=== PATIENT | female | born 1940 | race Caucasian/White ===

== ENCOUNTER 2017-12-20 12:11 | Observation (INO) ==
[2017-12-20] MEDS ORDERED: Ondansetron 4 MG/2 ML VIAL IVP ONE (12:23)
[2017-12-20] MEDS ORDERED: *HR* FentaNYL (PF) 100 MCG/2 ML VIAL IVP ONE ×2 (12:24→14:23)
[2017-12-20] MEDS ORDERED: Orphenadrine 60 MG/2 ML VIAL IVP ONE (12:25)
--- NOTE | 2017-12-20 12:28 | Emergency Department Note ---
Disposition Clinical Impression: Lumbar radiculopathy, Lumbar back pain, Intractable low back pain UTI (urinary tract infection) Qualifiers: Urinary tract infection type: acute cystitis Hematuria presence: without hematuria Qualified Code(s): N30.00 - Acute cystitis without hematuria Disposition: Admitted As Inpatient Condition: Good Reasons to Return/Additional Instructions: Return with worsening symptoms or any other complaints. Please follow-up as scheduled for her procedure. Referrals: Tamela Smith CNP [Primary Care Provider] - Forms: ED Satisfaction Letter Back Pain HPI - General Chief Complaint: ED Back Pain/Injury Time Seen by Provider: 12/20/17 12:16 Source: patient, EMS Nursing Notes Reviewed: Yes Vital Signs Reviewed: Yes - History of Present Illness HPI Narrative: 77-year-old female presents to the emergency part chief complaint lower back pain. Patient states is the worst lower back pain she has had some time. She scheduled for lumbar surgery of some kind, but in prepping her for that she was found to require triple bypass. The surgery scheduled for Friday. She says the pain is just unbearable. She takes oral opioids at home and she says they are not helping. She also takes a muscle relaxant of unknown name. She denies fevers chills loss of bowel or bladder function or other complaints at this time. Pt Subjective Complaint: back pain Onset (ago): month(s) Duration: constant Similar Symptoms Previously: Yes Location: lumbar spine Pain Severity: severe Pain Scale: 8 Quality: sharp Radiation: left leg Improves with: none Worsens with: none Associated symptoms: Reports: denies other symptoms Treatments prior to arrival: prescription analgesics - Related Data Home Medications Medication Instructions Recorded Confirmed Aspirin 81 mg PO DAILY 05/22/15 12/16/17 Carvedilol [Coreg] 6.25 mg PO BIDWM 05/22/15 12/16/17 Cholecalciferol (Vitamin D3) 2,000 unit PO DAILY 05/22/15 12/16/17 [Vitamin D3] Clopidogrel Bisulfate [Plavix] 75 mg PO DAILY 05/22/15 12/16/17 Insulin ASPART [NovoLOG] 5 - 24 unit SQ TIDWM PRN 05/22/15 12/16/17 Levothyroxine Sodium [Synthroid] 100 mcg PO DAILY 05/22/15 12/16/17 Simvastatin [Zocor] 20 mg PO HS 05/22/15 12/16/17 Doxepin HCl 150 mg PO HS 01/17/17 12/16/17 Benzonatate [Tessalon] 100 mg PO TID PRN 12/16/17 12/16/17 Gabapentin [Neurontin] 100 mg PO TID PRN 12/16/17 12/16/17 Hydrocodone/Acetaminophen 1 each PO TID PRN 12/16/17 12/16/17 [Hydrocodone-Acetamin 7.5-300] LORazepam [Ativan] 0.5 - 1 mg PO TID PRN 12/16/17 12/16/17 Oxycodone HCl [Oxaydo] 5 mg PO BID PRN 12/16/17 12/16/17 Sennosides [Senokot] 8.6 mg PO DAILY 12/16/17 12/16/17 Tizanidine HCl [Zanaflex] 2 mg PO TID 12/16/17 12/16/17 Venlafaxine [Effexor] 37.5 mg PO DAILY 12/16/17 12/16/17 Previous Rx's Medication Instructions Recorded Amlodipine [Norvasc] 2.5 mg PO DAILY #30 tablet 05/25/15 Allergies Allergy/AdvReac Type Severity Reaction Status Date / Time shellfish derived AdvReac Vomiting Verified 12/16/17 06:56 All systems ED: reviewed and negative except as stated. Constitutional: Reports: as per HPI Eyes: Reports: as per HPI ENT ED: Reports: as per HPI Cardiovascular: Reports: as per HPI Respiratory: Reports: as per HPI Gastrointestinal: Reports: as per HPI Genitourinary: Reports: as per HPI Musculoskeletal: Reports: as per HPI Neurological: Reports: as per HPI Psychiatric: Reports: as per HPI Past Medical History - Past Medical History Attestation: Yes The following information was validated with the patient. Medical history: Reports: cancer, coronary artery disease, diabetes, hyperlipidemia, hypertension, thyroid disease, other Surgical history: Reports: angioplasty/stent, hysterectomy, other (Left subclavian port placement) Psychiatric history: Reports: anxiety, depression KEY RINGER history: Reports: no KEY RINGER history - Social History Smoking Status: Former smoker Smokeless Tobacco Status: No Alcohol use: Reports: none Drug use: Reports: none Physical Exam - General Limitations: no limitations General appearance: alert, in no apparent distress - Head Head exam: atraumatic - Neck Neck exam: Present: normal inspection - Chest Chest inspection: Present: normal inspection - Respiratory Respiratory exam: Present: normal lung sounds bilaterally - Cardiovascular Cardiovascular exam: Present: regular rate, normal rhythm - Abdominal Exam Abdominal exam: Present: soft, Non-Tender - Extremities Exam Extremities exam: Present: normal inspection - Back Exam Back exam: Present: normal inspection, tenderness (Patient has exquisite tenderness with palpation of the entire lumbar area. It is difficult to ascertain whether maybe specific problems because of her level of discomfort.) - Psychiatric Psychiatric exam: Present: normal affect, anxious - Skin Skin exam: Present: warm, dry, intact Course Vital Signs Temperature 98.7 F 12/20/17 12:16 Pulse Rate 79 12/20/17 12:16 Respiratory Rate 18 12/20/17 12:16 Blood Pressure 154/86 12/20/17 12:16 O2 Sat by Pulse Oximetry 94 12/20/17 12:16 Temperature 98.7 F 12/20/17 12:16 Pulse Rate 79 12/20/17 12:16 Respiratory Rate 18 12/20/17 12:16 Blood Pressure 154/86 12/20/17 12:16 O2 Sat by Pulse Oximetry 94 12/20/17 12:16 Oxygen Delivery Oxygen Delivery Room Air Back Pain/Injury - MDM Narrative Medical decision making narrative: An attempt to not give the patient something that would preclude her from having her bypass surgery we opted for fentanyl a muscle relaxant and some Zofran. Patient was requesting possible admission until her surgery time, I explained that this would be dependent on whether or not her pain was able to be controlled. Otherwise she had no other complaints. Hemodynamically she was stable. Patient initially stated that the pain medicine was helping, but then said it really was not touching her pain. Additionally urinalysis was positive. At this point him and he tried to admit the patient for intractable back pain and UTI. Hopefully couple days of IV antibiotics and get her ready for her cardiac surgery on Friday. We discussed the case with the hospitalist service at 3 PM agreed to accept the patient for admission. - Lab Data Result diagrams: 12/20/17 14:39 Lab Results 12/20/17 12/20/17 Range/Units 12:38 14:39 WBC 4.4 (4.3-11.1) K/mcL RBC 3.91 (3.82-4.97) M/mcL Hgb 11.9 (11.5-15.4) g/dL Hct 36.6 (35.3-44.9) % MCV 93.6 (83.0-100.0) fL MCH 30.4 (28.0-33.3) pg MCHC 32.5 (31.6-35.5) g/dL RDW 13.6 (11.5-14.5) % Plt Count 148 (140-400) K/mcL MPV 9.0 L (9.4-12.4) fL Immature Gran % 0.5 (0-4) % Seg Neutrophils % 58.1 % Lymphocytes % 24.3 % Monocytes % 10.6 % Eosinophils % 6.0 % Basophils % 0.5 % Neutrophils # 2.5 (1.6-8.9) K/mcL Lymphocytes # 1.1 (0.6-4.6) K/mcL Monocytes # 0.5 (0.0-1.3) K/mcL Eosinophils # 0.3 (0.0-0.6) K/mcL Basophils # 0.0 (0.0-0.2) K/mcL Urine Color Yellow (Yellow) Urine Clarity Cloudy A (Clear) Urine pH 7.0 (5.0-8.0) pH Units Ur Specific [place] 1.011 (1.010-1.025) Urine Protein Negative (Neg-Trace) mg/dL Urine Glucose (UA) Normal (Normal) mg/dL Urine Ketones Negative (Negative) mg/dL Urine Blood Negative (Negative) Urine Nitrite Negative (Negative) Urine Bilirubin Negative (Negative) Urine Urobilinogen Normal (Normal) mg/dL Ur Leukocyte Esterase Large H (Negative) Urine Microscopic RBC 3-5 H (0-3) per hpf Urine Microscopic WBC 30-50 H (0-3) per hpf Ur Squamous Epith Cells Moderate H (None-Few) per lpf Urine Bacteria None Seen (None-Few) per hpf Hyaline Casts None Seen (None-Few) per lpf Ur Culture Indicated? YES A (NO) - Radiology Data Radiology results reviewed: Yes I reviewed the patient's radiology results.
[2017-12-20 14:13] LABS: Bilirubin,Urine Negative (Negative); Blood,Urine Negative (Negative); Clarity,Urine Cloudy (Clear); Color,Urine Yellow (Yellow); Glucose,Urine (UA) Normal (Normal); Ketones,Urine Negative (Negative); Leukocyte Esterase,Urine Large (Negative); Nitrite,Urine Negative (Negative); Protein,Urine Negative (Neg-Trace); Specific Gravity,Urine 1.011 (1.010-1.025); Urobilinogen,Urine Normal (Normal)
[2017-12-20 14:17] LABS: Bacteria,Urine None Seen per hpf (None-Few); Hyaline Casts,Urine None Seen per lpf (None-Few); Squamous Epithelial Cell,Urine Moderate per lpf (None-Few); WBC,Urine 30-50 per hpf (0-3)
[2017-12-20] MEDS ORDERED: cefTRIAXone 1,000 MG in Water for inj. (sterile) 20 ML 10 ML IVP ONE (14:46)
[2017-12-20 14:49] LABS: Hematocrit 36.6 % (35.3-44.9); Hemoglobin 11.9 g/dL (11.5-15.4); Immature Granulocytes % 0.5 % (0-4); Lymphocytes % 24.3 %; Mean Corpuscular HGB Conc 32.5 g/dL (31.6-35.5); Mean Corpuscular Hemoglobin 30.4 pg (28.0-33.3); Mean Corpuscular Volume 93.6 fL (83.0-100.0); Monocytes % 10.6 %; Platelet Count 148 K/mcL (140-400); Red Blood Count 3.91 M/mcL (3.82-4.97); Red Cell Distribution Width 13.6 % (11.5-14.5); Segmented Neutrophils % 58.1 %
[2017-12-20 14:50] LABS: Basophils % 0.5 %; Eosinophils # 0.3 K/mcL (0.0-0.6); Lymphocytes # 1.1 K/mcL (0.6-4.6); Monocytes # 0.5 K/mcL (0.0-1.3); Neutrophils # 2.5 K/mcL (1.6-8.9)
[2017-12-20] MEDS ORDERED: cefTRIAXone 1,000 MG in Water for inj. (sterile) 20 ML 10 ML IVP SCH (15:00)
[2017-12-20 15:12] LABS: Alanine Aminotransferase 10 Units/L (7-52); Albumin 3.8 g/dL (3.5-5.7); Albumin/Globulin Ratio 1.7 (1.1-2.2); Alkaline Phosphatase 68 Units/L (34-104); Aspartate Amino Transferase 14 Units/L (13-39); BUN/Creatinine Ratio 9 (6-26); Bilirubin,Direct 0.1 mg/dL (0.0-0.2); Bilirubin,Indirect 0.3 mg/dL (0.0-1.2); Bilirubin,Total 0.4 mg/dL (0.3-1.0); Blood Urea Nitrogen 7 mg/dL (8-23); Calcium 8.9 mg/dL (8.6-10.3); Carbon Dioxide 29 mEq/L (23-29); Chloride 102 mEq/L (98-107); Globulin 2.2 g/dL (2.4-3.5); Glucose 95 mg/dL (70-105); Osmolality,Calculated 282 (280-300); Potassium 3.6 mEq/L (3.5-5.1); Sodium 137 mEq/L (136-145); eGFR For African Americans > 60 (> 60); eGFR For Non-African Americans > 60 (> 60)
[2017-12-20] MEDS ORDERED: Naloxone 0.4 MG/ML INJ IVP PRN (17:40)
[2017-12-20] MEDS ORDERED: Acetaminophen 325 MG TABLET PO PRN (17:40)
[2017-12-20] MEDS ORDERED: OXYCODONE Oral CONC 10 MG/0.5 ML ORAL.SYG SL PRN (18:06)
[2017-12-20] MEDS: *HR* HYDROcodone/Acet 7.5/325 mg TABLET PO PRN (18:15)
[2017-12-20] MEDS: *HR* OxyCODONE/APAP 10/325 TABLET PO PRN ×2 (18:15→22:44)
[2017-12-20] MEDS ORDERED: Sennosides 8.6 MG TABLET PO PRN (18:20)
[2017-12-20] MEDS ORDERED: *HR* Dextrose 50 % in Water (Syg) 50 ML SYRINGE IVP PRN (18:25)
[2017-12-20] MEDS ORDERED: D5% in Water 1,000 ML IVC PRN (18:25)
[2017-12-20] MEDS ORDERED: Dextrose Gel 15 GM/37.5 ML TUBE PO PRN ×2 (18:25)
--- NOTE | 2017-12-20 18:28 | Internal Med History&Physical ---
<KeishaKaleb - Last Filed: 12/20/17 19:26> Date of Encounter: 12/20/17 Time of Encounter: 17:15 Internal Medicine - H&P: HPI Chief complaint: Chronic low back pain/UTI Admitted From: Emergency Dept Plans for Post Hospital Care: Home History of present illness: Ms. Chavez is a 77 year old female w/PMH of non-Hodgkin's lymphoma in 2006 and 2008, CAD, diabetes controlled with insulin, HLD, HTN, and thyroid disease presents from the ED with chief complaint of chronic low back pain. Pt. reports she was supposed to have back surgery this past Friday but did not due to the discovery of need for triple bypass surgery which is scheduled for Friday, . Patient states oral pain medication she takes at home are no longer helping control her pain or muscle spasms. Patient denies recent illness, fever , chills, nausea, vomiting, headache, changes in vision, chest pain, palpitations, abdominal pain, numbness, tingling, dizziness, lightheadedness, pre-syncope, or syncope. Past Med Surg Social Fam HX - Past Medical History Source: patient, old records reviewed, obtained from family Medical history: cancer (Non-Hodgkins lymphoma in 2006 and 2008), coronary artery disease, diabetes (Insulin-controlled), hyperlipidemia, hypertension, thyroid disease, other Psychiatric history: anxiety, depression - Past Surgical History Surgical History: angioplasty/stent (x1), hysterectomy (Total), other - Social History Smoking Status: Never smoker Smokeless Tobacco Status: No Alcohol use: none Drug use: none Current living situation: Home, With Family Activity Level: Independent ambulation Recent Out of Country Travel Within the Last 8 Weeks: No Exposure or Possible Exposure to Illness During Travel: No - Family History Sister Race: Family Member Ethnicity: Non- Living Status: Still Living Hx Family GI Disorders: Yes (Crohn's disease) Hx Family Musculoskeletal Disorders: Yes (RA, Osteoporosis) Mother Race: Family Member Ethnicity: Non- Living Status: Age at : 60 Cause of : CVA Hx Family Cardiac Disorders: Yes (CVA) Hx Family Neurologic Disorders: Yes (CVA) Father Race: Family Member Ethnicity: Non- Living Status: Age at : 65 Cause of : CVA Hx Family Cardiac Disorders: Yes (CVA) Hx Family Neurologic Disorders: Yes (CVA) Brother Race: Family Member Ethnicity: Non- Living Status: Still Living Hx Family GI Disorders: Yes (GI problems) Internal Medicine - H&P: Meds Amlodipine Besylate [Amlodipine Besylate] 2.5 mg PO DAILY 12/20/17 [History] Aspirin [Adult Aspirin Regimen] 81 mg PO DAILY 12/20/17 [History] Carvedilol [Coreg] 6.25 mg PO BID 12/20/17 [History] Clopidogrel [Plavix] 75 mg PO DAILY 12/20/17 [History] Doxepin HCl 150 mg PO HS 12/20/17 [History] Gabapentin [Neurontin] 100 - 200 mg PO BID 12/20/17 [History] HYDROcodone/Acet 7.5/325 mg [[place] 7.5-325 mg] 1 tab PO TID PRN 12/20/17 [ History] Insulin ASPART [Novolog Flexpen] 5 - 24 unit SQ TIDWM 12/20/17 [History] Insulin Glargine,Hum.rec.anlog [Basaglar Kwikpen U-100] 15 unit SQ HS 12/20/17 [ History] LORazepam [Ativan] 0.5 - 1 mg PO TID PRN 12/20/17 [History] Levothyroxine Sodium 100 mcg PO DAILY 12/20/17 [History] Multivitamin [One Daily Essential] 1 tab PO DAILY 12/20/17 [History] Sennosides [Senokot] 8.6 mg PO DAILY PRN 12/20/17 [History] Simvastatin [Zocor] 20 mg PO HS 12/20/17 [History] Tizanidine HCl [Zanaflex] 2 mg PO TID 12/20/17 [History] Venlafaxine XR (24 HR) [Effexor Xr] 37.5 mg PO DAILY 12/20/17 [History] 3 Allergy/AdvReac Type Severity Reaction Status Date / Time shellfish derived AdvReac Vomiting Verified 12/20/17 15:32 All Systems PM: A 10-system review of systems was performed and is negative for pertinent findings except as documented above in the HPI. - Constitutional Constitutional: as per HPI, no chills, no fever(s), no night sweats - EENT Eyes: no change in vision, no discharge, no pain, no photophobia Ears: no ear discharge, no ear pain, no tinnitus Nose, mouth and throat: no dysphagia, no nasal discharge, no neck pain, no sore throat - Breasts Breasts: as per HPI - Cardiovascular Cardiovascular ROS IM: no chest pain, no diaphoresis, no dyspnea, no lightheadedness, no palpitations, no syncope - Respiratory Respiratory: no cough, no dyspnea, no wheezing, no excessive phlegm production - Gastrointestinal Gastrointestinal: no abdominal pain, no diarrhea, no hematemesis, no hematochezia, no melena, no nausea, no vomiting - Genitourinary Genitourinary: no change in urinary stream, no dysuria, no flank pain, no hematuria Menstruation: as per HPI, post hysterectomy - Musculoskeletal Musculoskeletal ROS IM: as per HPI, back pain, no numbness, no tingling - Integumentary Integumentary IM: no rash, no unusual bruising - Neurological Neurological ROS: no confusion, no convulsions, no focal weakness, no numbness, no tingling, no tremor(s) - Psychiatric Psychiatric: as per HPI, anxiety, depression - Endocrine Endocrine IM: as per HPI - Hematologic/Lymphatic Hematologic/Lymphatic: no easy bruising - Allergic/Immunologic Allergic/Immunologic: as per HPI - Constitutional Vitals: Temp Pulse Resp BP Pulse Ox 98.4 F 77 16 169/92 94 12/20/17 16:51 12/20/17 16:51 12/20/17 16:51 12/20/17 16:51 12/20/17 16:51 General appearance: Present: cooperative, mild distress (Back pain), A&O X 3, pleasant, obese, answers questions appropriately - Head Head exam: Present: atraumatic, normocephalic - Eye Eye exam: Present: PERRL, conjuntiva pink, sclera anicteric Pupils: Present: PERRL - ENT ENT exam: Present: normal exam - Neck Neck exam general surgery: Present: supple, trachea midline. Absent: lymphadenopathy - Respiratory Respiratory exam: Present: CTAB. Absent: accessory muscle use, rales, rhonchi, wheezes - Cardiovascular Cardiovascular exam: Present: RRR, +S1, +S2. Absent: diastolic murmur, gallop, rubs, systolic murmur - GI/Abdominal GI/Abdominal exam: Present: normal bowel sounds, soft, no peritoneal signs. Absent: distended, tenderness - Rectal Rectal exam: Present: deferred - Additional comments: exam deferred. - Extremities Exam Extremities exam: Present: warm, radial pulses palpable and symmetrical. Absent : calf tenderness, cyanotic, pedal edema - Back Exam Back exam: Present: normal inspection - Neurological Exam Neurological exam: Present: CN II-XII intact, oriented X3, no focal deficits. Absent: pronater drift, facial droop, speech deficit - Psychiatric Psychiatric exam: Present: normal affect, normal mood - Skin Skin exam: Present: dry, intact Internal Med - H&P Results - Labs CBC & Chem 7: 12/20/17 14:39 12/20/17 14:39 - Diagnostic Studies Other Images Additional comments: Impressions Lumbar Spine X-Ray 12/20/17 12:23 IMPRESSION: Grade 1 anterolisthesis of L4 on L5 and L5 on S1. Mild multilevel degenerative changes without acute osseous abnormality. Osteopenia. D/ / 12/20/2017 13:31:54 Aydee Combs MD / [email or web address] Interpreting Provider: Aydee Combs MD - Assessment and plan (1) Intractable low back pain Current Visit: Yes Status: Acute Assessment and plan: Acute on chronic low back pain. 3V lumbar spine XR today shows grade 1 anterolisthesis of L4 on L5 and L5 on S1. Mild multilevel degenerative changes without acute osseous abnormality. Osteopenia. Patient reports she was due to have back surgery this past Friday but was unable to do so due to discovered need for triple bypass surgery. Plan is to continue with back surgery post- bypass surgery. Will manage pts. chronic back pain w/stair-step pain medications and adjust medications/dosing as needed. Will add Flexeril for reported muscle spasms. Pts. pain and f/u labs to be monitored closely. Pt. discussed w/Dr. Sharpe who agrees w/plan of care. Pt. is moderate risk for further morbidity and falls risk d/t current acute on chronic back pain and current UTI infection, hx, and risk factors (including current heart blockages requiring bypass surgery). Observation. (2) UTI (urinary tract infection) Current Visit: Yes Status: Acute Assessment and plan: Acute UTI from UA today. Pt. denies urinary sx but reports hx off UTIs in past. IVPB ceftriaxone 1000 mg daily for infection coverage. Monitor I&O. Patient currently afebrile and asymptomatic with vital signs WNL. Will monitor patient and f/u labs for signs of increasing infection and/or sepsis criteria. Will adjust abx coverage based on UA culture results if warranted. Qualifiers: Urinary tract infection type: acute cystitis Hematuria presence: without hematuria Qualified Code(s): N30.00 - Acute cystitis without hematuria (3) Diabetes Current Visit: Yes Status: Chronic Assessment and plan: Hx of chronic DM controlled w/insulin. Will administer low-dose correction insulin sliding scale and hypoglycemic protocol. A1c in a.m. labs. BG checks ACHS. Qualifiers: Diabetes mellitus type: type 2 Diabetes mellitus ocean transportation intermediary insulin use: unspecified correction insulin use status Diabetes mellitus complication status : with unspecified complications Qualified Code(s): E11.8 - Type 2 diabetes mellitus with unspecified complications (4) HLD (hyperlipidemia) Current Visit: Yes Status: Chronic Assessment and plan: Hx of chronic HLD. Lipid panel in a.m. labs. Continue pts. Zocor. Qualifiers: Hyperlipidemia type: pure hypercholesterolemia Qualified Code(s): E78.00 - Pure hypercholesterolemia, unspecified; E78.0 - Pure hypercholesterolemia (5) HTN (hypertension) Current Visit: Yes Status: Chronic Assessment and plan: Hx of chronic HTN. Monitor pt. and VS. Continue pts. amlodipine and Coreg. Qualifiers: Hypertension type: essential hypertension Qualified Code(s): I10 - Essential (primary) hypertension (6) CAD (coronary artery disease) Current Visit: Yes Status: Chronic Assessment and plan: Hx of CAD. Pt. reports impending surgery on 12/22/17 for triple bypass. Pt. had recent heart cath on 12/16/[address] [facility]. Continuous cardiac telemetry. Continue pts. aspirin, Zocor, amlodipine, and Coreg. Qualifiers: Coronary Disease-Associated Artery/Lesion type: [place] artery [place] vs. transplanted heart: [place] heart Associated angina: with other forms of angina Qualified Code(s): I25.118 - Atherosclerotic heart disease of [place] coronary artery with other forms of angina pectoris (7) Anxiety and depression Current Visit: Yes Status: Chronic Assessment and plan: Hx of anxiety and depression. Continue patient's Effexor and doxepin. (8) Hx of non-Hodgkin's lymphoma Current Visit: No Status: Resolved Assessment and plan: Hx of non-Hodgkins lymphoma in 2006 and 2008. Resolved. (9) DVT prophylaxis Current Visit: Yes Status: Acute Assessment and plan: Bilateral SCDs on LEs for DVT prophylaxis d/t upcoming surgery on 12/22/17. - Time Spent With Patient Total time spent is greater than 50% in coordination of care (as documented) at patient's floor/unit and/or counseling patient: Greater than 35 minutes <Hai Sharpe P - Last Filed: 12/21/17 10:57> Date of Encounter: 12/21/17 Internal Medicine - H&P: HPI History of present illness: Ms. Chavez is a 77 year old female All Systems PM: A 10-system review of systems was performed and is negative for pertinent findings except as documented above in the HPI. - Constitutional Vitals: Temp Pulse Resp BP Pulse Ox 98.2 F 73 16 146/74 96 12/21/17 06:52 12/21/17 06:52 12/21/17 06:52 12/21/17 06:52 12/21/17 06:52 Internal Med - H&P Results - Labs CBC & Chem 7: 12/21/17 02:46 12/21/17 02:46 Labs: Short CBC 12/21/17 Range/Units 02:46 WBC 4.6 (4.3-11.1) K/mcL Hgb 11.5 (11.5-15.4) g/dL Hct 34.2 L (35.3-44.9) % Plt Count 150 (140-400) K/mcL Neutrophils # 2.5 (1.6-8.9) K/mcL BMP 12/21/17 02:46 Sodium 136 Potassium 4.0 Chloride 103 Carbon Dioxide 27 BUN 8 Creatinine 0.70 Glucose 173 H Calcium 8.7 Liver Function 12/21/17 Range/Units 02:46 Total Bilirubin 0.4 (0.3-1.0) mg/dL AST 15 (13-39) Units/L ALT 10 (7-52) Units/L Alkaline Phosphatase 61 (34-104) Units/L Albumin 3.5 (3.5-5.7) g/dL - Attending Attestation I examined this patient and my medical decision-making was reviewed with the Resident Physician/[employer]SHAL. I agree with the documented findings, disposition and treatment plan as described except to the extent set forth below. seen and examined agree with plan - Assessment and plan (1) UTI (urinary tract infection) Current Visit: Yes Status: Acute Qualifiers: Urinary tract infection type: acute cystitis Hematuria presence: without hematuria Qualified Code(s): N30.00 - Acute cystitis without hematuria (2) CAD (coronary artery disease) Current Visit: Yes Status: Chronic Qualifiers: Coronary Disease-Associated Artery/Lesion type: [place] artery [place] vs. transplanted heart: [place] heart Associated angina: with other forms of angina Qualified Code(s): I25.118 - Atherosclerotic heart disease of [place] coronary artery with other forms of angina pectoris (3) Intractable low back pain Current Visit: Yes Status: Acute (4) Hx of non-Hodgkin's lymphoma Current Visit: No Status: Resolved (5) Diabetes Current Visit: Yes Status: Chronic Qualifiers: Diabetes mellitus type: type 2 Diabetes mellitus ocean transportation intermediary insulin use: unspecified ocean transportation intermediary insulin use status Diabetes mellitus complication status : with unspecified complications Qualified Code(s): E11.8 - Type 2 diabetes mellitus with unspecified complications (6) HLD (hyperlipidemia) Current Visit: Yes Status: Chronic Qualifiers: Hyperlipidemia type: pure hypercholesterolemia Qualified Code(s): E78.00 - Pure hypercholesterolemia, unspecified; E78.0 - Pure hypercholesterolemia (7) HTN (hypertension) Current Visit: Yes Status: Chronic Qualifiers: Hypertension type: essential hypertension Qualified Code(s): I10 - Essential (primary) hypertension (8) Anxiety and depression Current Visit: Yes Status: Chronic - Time Spent With Patient Total time spent is greater than 50% in coordination of care (as documented) at patient's floor/unit and/or counseling patient:
[2017-12-20] MEDS: *HR* LORazepam 1 MG TABLET PO PRN (19:44)
--- NOTE | 2017-12-20 19:55 | Event Note ---
<Kaleb Valdes G - Last Filed: 12/20/17 19:55> Date of Encounter: 12/20/17 Time of Encounter: 17:00 Asked by pt. and family to alert Dr. Tobar of pts. admission d/t impending surgery on 12/22/[address]. Tobar to inform him of admission. Recommendation is to hold pts. Plavix d/t surgery but continue pts. aspirin therapy. I appreciate the recommendations. Pt. to be monitored closely d /t UTI and current chronic and intractable back pain. <Hai Sharep P - Last Filed: 12/21/17 10:57> Date of Encounter: 12/21/17 I examined this patient and my medical decision-making was reviewed with the Resident Physician/DISTRIBUTION SYSTEMS SUPERINTENDENT. I agree with the documented findings, disposition and treatment plan as described except to the extent set forth below. agree with above
[2017-12-20] MEDS: Insulin LISPRO 300 UNITS/3 ML VIAL SQ SCH (22:37)
[2017-12-20] MEDS: Gabapentin 100 MG CAPSULE PO SCH (22:41)
[2017-12-21 03:17] LABS: Basophils % 0.4 %; Eosinophils # 0.3 K/mcL (0.0-0.6); Eosinophils % 5.5 %; Hematocrit 34.2 % (35.3-44.9); Hemoglobin 11.5 g/dL (11.5-15.4); Immature Granulocytes % 0.4 % (0-4); Lymphocytes # 1.3 K/mcL (0.6-4.6); Lymphocytes % 27.4 %; Mean Corpuscular HGB Conc 33.6 g/dL (31.6-35.5); Mean Corpuscular Hemoglobin 31.8 pg (28.0-33.3); Mean Corpuscular Volume 94.5 fL (83.0-100.0); Mean Platelet Volume 8.9 fL (9.4-12.4); Monocytes # 0.5 K/mcL (0.0-1.3); Monocytes % 11.4 %; Neutrophils # 2.5 K/mcL (1.6-8.9); Platelet Count 150 K/mcL (140-400); Red Blood Count 3.62 M/mcL (3.82-4.97); Red Cell Distribution Width 13.6 % (11.5-14.5); Segmented Neutrophils % 54.9 %
[2017-12-21 03:34] LABS: Alanine Aminotransferase 10 Units/L (7-52); Albumin 3.5 g/dL (3.5-5.7); Albumin/Globulin Ratio 1.7 (1.1-2.2); Alkaline Phosphatase 61 Units/L (34-104); Aspartate Amino Transferase 15 Units/L (13-39); BUN/Creatinine Ratio 11 (6-26); Bilirubin,Total 0.4 mg/dL (0.3-1.0); Blood Urea Nitrogen 8 mg/dL (8-23); Calcium 8.7 mg/dL (8.6-10.3); Carbon Dioxide 27 mEq/L (23-29); Chloride 103 mEq/L (98-107); Chol/HDL Ratio 4.2 (0-4.9); Cholesterol 168 mg/dL (< 200); Globulin 2.1 g/dL (2.4-3.5); Glucose 173 mg/dL (70-105); HDL Cholesterol 40 mg/dL (40-59); LDL Cholesterol,Calculated 94 mg/dL (0-99); Magnesium 1.8 mg/dL (1.6-2.6); Osmolality,Calculated 284 (280-300); Sodium 136 mEq/L (136-145); Total Protein 5.6 g/dL (6.4-8.9); Triglycerides 171 mg/dL (< 150); eGFR For African Americans > 60 (> 60); eGFR For Non-African Americans > 60 (> 60)
[2017-12-21] MEDS: *HR* OxyCODONE/APAP 10/325 TABLET PO PRN ×3 (06:33→22:09)
--- NOTE | 2017-12-21 07:51 | Cardiothoracic Progress Note ---
Date of Encounter: 12/21/17 Time of Encounter: 07:49 - Assessment and plan (1) UTI (urinary tract infection) Current Visit: Yes Status: Acute The patient is a 77 year old type II diabetic, hypertensive lady with known CAD and hypercholesterolemia who was admitted to the [facility] for elective cardiac catheterization. The patient's cardiac history dates back to 2007 which time she underwent PCI with RCA stent placement. She states that she did well until recently, when she began experiencing shortness of breath and dyspnea on exertion. She lives in a bilevel house and has 2 climb stairs throughout the day. She states that at the top of each flight of stairs she will have shortness of breath and dyspnea exertion. In addition, the patient has lower back pain and has been scheduled for a lumbar laminectomy with fusion and posterior spinal instrumentation. Given her presenting symptoms, previous RCA stent placement, and cardiac risk profile she was recommended for cardiac workup prior to her spinal operation. A nuclear stress test revealed an LVEF 49% with cassandra-infarct ischemia involving the distal anterior wall and the distal anteroseptum. She was recommended for cardiac catheterization which was performed today. This study revealed severe 3 vessel CAD and an LVEF 40%. In particular, the patient has a 60% distal left main lesion, a 99% ostial/proximal LAD lesion, an 80% mid LAD lesion, an 80% ostial D1 lesion, a 40% proximal LCx lesion, a 30% mid LCx lesion, a completely occluded proximal RCA which fills distally via [id number] collaterals. She has been recommended for CABG which had been scheduled for 12/22/2017. Unfortunately the patient developed urinary tract infection and we will need to be treated with oral antibiotics for several days. After the antibiotic course the patient will undergo a straight catheter urinalysis to be certain that the UTI has been eradicated. She will then be rescheduled for CABG. Qualifiers: Urinary tract infection type: acute cystitis Hematuria presence: without hematuria Qualified Code(s): N30.00 - Acute cystitis without hematuria - Subjective Interval history: The patient is resting comfortably in her hospital bed. She has no complaints. Vital Signs, Last 4 Hours Temp Pulse Resp BP Pulse Ox 12/21/17 06:52 98.2 F 73 16 146/74 96 12/21/17 04:00 97.8 F 70 18 143/72 95 Oxgyen Flow Rate Oxygen Flow Rate (LPM) 2 Clinical Data, last 8 Hours Output, Urine Amount 0 Output, Urine Amount 400 Weight 12/19/17 12/20/17 12/21/17 23:59 23:59 23:59 Weight 83 kg 83.2 kg - Physical Examination General: Conversant, No Apparent Distress Neck: No JVD, Normal carotid pulses Cardiac: Reg Rate and Rhythm, Normal S1 and S2, No Murmur Lungs: Normal Breath Sounds, No Wheeze, Rales, Rhonchi Neuro: Alert and responsive, No focal deficits noted Vascular: Normal capillary refill Extremities: No Clubbing, No Cyanosis, No Edema - Labs 12/21/17 02:46 12/21/17 02:46 Lab Results, Last 24 hours 12/21/17 12/21/17 02:46 02:46 WBC 4.6 Hgb 11.5 Hct 34.2 L Plt Count 150 Sodium 136 Potassium 4.0 Chloride 103 Carbon Dioxide 27 BUN 8 Creatinine 0.70 Glucose 173 H Calcium 8.7 Magnesium 1.8 Total Bilirubin 0.4 AST 15 ALT 10 Alkaline Phosphatase 61 Consult Discharge Plan - Plan Referrals: Tamela Smith, [employer] ATTENDANT [Primary Care Provider] -
[2017-12-21 08:38] LABS: Estimated Average Glucose 169 mg/dl; Hemoglobin A1C 7.5 %
[2017-12-21] MEDS: *HR* HYDROcodone/Acet 7.5/325 mg TABLET PO PRN (09:49)
[2017-12-21] MEDS: Venlafaxine XR (24 HR) 37.5 MG CAP.ER.24H PO SCH (09:49)
[2017-12-21] MEDS: Gabapentin 100 MG CAPSULE PO SCH ×2 (09:50→22:10)
[2017-12-21] MEDS: cefTRIAXone 1,000 MG in Water for inj. (sterile) 20 ML 10 ML IVP SCH (09:50)
[2017-12-21] MEDS: amLODIPine 5 MG TABLET PO SCH (09:50)
[2017-12-21] MEDS: Aspirin Enteric Coated 81 MG Tablet PO SCH (09:50)
[2017-12-21] MEDS: Multivit/Ca/Min/Fe/FA 1 TAB TABLET PO SCH (09:50)
[2017-12-21] MEDS: *HR* LORazepam 1 MG TABLET PO PRN ×2 (09:58→22:10)
[2017-12-21] MEDS: Insulin LISPRO 300 UNITS/3 ML VIAL SQ SCH ×4 (10:11→22:10)
--- NOTE | 2017-12-21 10:34 | Internal Med Progress Note ---
Date of Encounter: 12/21/17 Time of Encounter: 10:29 - Assessment and plan (1) UTI (urinary tract infection) Current Visit: Yes Status: Acute Assessment and plan: Acute UTI from UA today. Pt. denies urinary sx but reports hx off UTIs in past. Continue ceftriaxone day#2 Monitor I&O. Cultures pending Qualifiers: Urinary tract infection type: acute cystitis Hematuria presence: without hematuria Qualified Code(s): N30.00 - Acute cystitis without hematuria (2) CAD (coronary artery disease) Current Visit: Yes Status: Chronic Assessment and plan: Three-vessel CAD CABG scheduled for 12/22/17 was cancelled due to UTI Most likely ewill be rescheduled for next week Pt. had recent heart cath on 12/16/17 at [facility] that showed an LVEF 40%. In particular, the patient has a 60% distal left main lesion, a 99% ostial/ proximal LAD lesion, an 80% mid LAD lesion, an 80% ostial D1 lesion, a 40% proximal LCx lesion, a 30% mid LCx lesion, a completely occluded proximal RCA which fills distally via [id number] collaterals. Continuous cardiac telemetry. Continue pts. aspirin, Zocor, amlodipine, and Coreg. PT OT consult Qualifiers: Coronary Disease-Associated Artery/Lesion type: [place] artery [place] vs. transplanted heart: [place] heart Associated angina: with other forms of angina Qualified Code(s): I25.118 - Atherosclerotic heart disease of [place] coronary artery with other forms of angina pectoris (3) Intractable low back pain Current Visit: Yes Status: Acute Assessment and plan: Acute on chronic low back pain. 3V lumbar spine XR today showed grade 1 anterolisthesis of L4 on L5 and L5 on S1. Mild multilevel degenerative changes without acute osseous abnormality. Osteopenia. Patient reports she was due to have back surgery this past Friday but was unable to do so due to discovered need for triple bypass surgery. Plan is to continue with back surgery post-bypass surgery. Flexeril for reported muscle spasms. (4) Hx of non-Hodgkin's lymphoma Current Visit: No Status: Resolved Assessment and plan: Hx of non-Hodgkins lymphoma in 2006 and 2008. Resolved. (5) Diabetes Current Visit: Yes Status: Chronic Assessment and plan: Hx of chronic DM controlled w/insulin. Will administer low-dose correction insulin sliding scale and hypoglycemic protocol. Hemoglobin A1c 7.5 Qualifiers: Diabetes mellitus type: type 2 Diabetes mellitus mcc insulin use: unspecified invisible braces orthodontist insulin use status Diabetes mellitus complication status : with unspecified complications Qualified Code(s): E11.8 - Type 2 diabetes mellitus with unspecified complications (6) HLD (hyperlipidemia) Current Visit: Yes Status: Chronic Assessment and plan: Continue pts. Zocor. Qualifiers: Hyperlipidemia type: pure hypercholesterolemia Qualified Code(s): E78.00 - Pure hypercholesterolemia, unspecified; E78.0 - Pure hypercholesterolemia (7) HTN (hypertension) Current Visit: Yes Status: Chronic Assessment and plan: Continue pts. amlodipine and Coreg. Qualifiers: Hypertension type: essential hypertension Qualified Code(s): I10 - Essential (primary) hypertension (8) Anxiety and depression Current Visit: Yes Status: Chronic - Time Spent With Patient Total time spent is greater than 50% in coordination of care (as documented) at patient's floor/unit and/or counseling patient: - Subjective Interval history: Complains of severe back pain, denies any dysuria, no chest or shortness of breath, fevers or chills, no diarrhea - Constitutional Vitals: Temp Pulse Resp BP Pulse Ox 98.2 F 73 16 146/74 96 12/21/17 06:52 12/21/17 06:52 12/21/17 06:52 12/21/17 06:52 12/21/17 06:52 General appearance: Present: cooperative, mild distress (Back pain), A&O X 3, pleasant, obese, answers questions appropriately - Head Head exam: Present: atraumatic, normocephalic - Eye Eye exam: Present: PERRL, conjuntiva pink, sclera anicteric Pupils: Present: PERRL - Neck Neck exam general surgery: Present: supple, trachea midline. Absent: lymphadenopathy - Respiratory Respiratory exam: Present: CTAB. Absent: accessory muscle use, rales, rhonchi, wheezes - Cardiovascular Cardiovascular exam: Present: RRR, +S1, +S2. Absent: diastolic murmur, gallop, rubs, systolic murmur - GI/Abdominal GI/Abdominal exam: Present: normal bowel sounds, soft, no peritoneal signs. Absent: distended, tenderness - Extremities Exam Extremities exam: Present: warm, radial pulses palpable and symmetrical. Absent : calf tenderness, cyanotic, pedal edema - Neurological Exam Neurological exam: Present: CN II-XII intact, oriented X3, no focal deficits. Absent: pronater drift, facial droop, speech deficit - Skin Skin exam: Present: dry, intact Additional comments: Bilateral leg weakness secondary to intractable back pain Internal Medicine: Result - Labs CBC & Chem 7: 12/21/17 02:46 12/21/17 02:46 Labs: Short CBC 12/21/17 Range/Units 02:46 WBC 4.6 (4.3-11.1) K/mcL Hgb 11.5 (11.5-15.4) g/dL Hct 34.2 L (35.3-44.9) % Plt Count 150 (140-400) K/mcL Neutrophils # 2.5 (1.6-8.9) K/mcL BMP 12/21/17 02:46 Sodium 136 Potassium 4.0 Chloride 103 Carbon Dioxide 27 BUN 8 Creatinine 0.70 Glucose 173 H Calcium 8.7 Liver Function 12/21/17 Range/Units 02:46 Total Bilirubin 0.4 (0.3-1.0) mg/dL AST 15 (13-39) Units/L ALT 10 (7-52) Units/L Alkaline Phosphatase 61 (34-104) Units/L Albumin 3.5 (3.5-5.7) g/dL Consult Discharge Plan - Plan Referrals: Tamela Smith, [employer] STAFF FITTER [Primary Care Provider] -
[2017-12-21] MEDS: OXYCODONE Oral CONC 10 MG/0.5 ML ORAL.SYG SL PRN ×2 (11:06→17:03)
[2017-12-22 03:12] LABS: Basophils % 0.4 %; Eosinophils # 0.4 K/mcL (0.0-0.6); Eosinophils % 6.8 %; Hematocrit 34.3 % (35.3-44.9); Hemoglobin 11.2 g/dL (11.5-15.4); Immature Granulocytes % 0.4 % (0-4); Lymphocytes # 1.3 K/mcL (0.6-4.6); Lymphocytes % 24.4 %; Mean Corpuscular HGB Conc 32.7 g/dL (31.6-35.5); Mean Platelet Volume 8.8 fL (9.4-12.4); Monocytes # 0.5 K/mcL (0.0-1.3); Monocytes % 10.1 %; Platelet Count 139 K/mcL (140-400); Red Blood Count 3.61 M/mcL (3.82-4.97); Red Cell Distribution Width 13.4 % (11.5-14.5); Segmented Neutrophils % 57.9 %
[2017-12-22 03:32] LABS: Alanine Aminotransferase 8 Units/L (7-52); Albumin 3.6 g/dL (3.5-5.7); Albumin/Globulin Ratio 1.9 (1.1-2.2); Alkaline Phosphatase 56 Units/L (34-104); Aspartate Amino Transferase 13 Units/L (13-39); BUN/Creatinine Ratio 12 (6-26); Bilirubin,Total 0.4 mg/dL (0.3-1.0); Blood Urea Nitrogen 10 mg/dL (8-23); Calcium 8.5 mg/dL (8.6-10.3); Carbon Dioxide 29 mEq/L (23-29); Chloride 101 mEq/L (98-107); Globulin 1.9 g/dL (2.4-3.5); Glucose 158 mg/dL (70-105); Osmolality,Calculated 282 (280-300); Potassium 3.7 mEq/L (3.5-5.1); Sodium 135 mEq/L (136-145); Total Protein 5.5 g/dL (6.4-8.9); eGFR For African Americans > 60 (> 60); eGFR For Non-African Americans > 60 (> 60)
[2017-12-22] MEDS: Insulin LISPRO 300 UNITS/3 ML VIAL SQ SCH ×4 (09:02→21:51)
[2017-12-22] MEDS: Aspirin Enteric Coated 81 MG Tablet PO SCH (09:03)
[2017-12-22] MEDS: amLODIPine 5 MG TABLET PO SCH (09:03)
[2017-12-22] MEDS: Venlafaxine XR (24 HR) 37.5 MG CAP.ER.24H PO SCH (09:03)
[2017-12-22] MEDS: Gabapentin 100 MG CAPSULE PO SCH ×2 (09:03→20:27)
[2017-12-22] MEDS: *HR* OxyCODONE/APAP 10/325 TABLET PO PRN (09:03)
[2017-12-22] MEDS: Multivit/Ca/Min/Fe/FA 1 TAB TABLET PO SCH (09:03)
[2017-12-22] MEDS: cefTRIAXone 1,000 MG in Water for inj. (sterile) 20 ML 10 ML IVP SCH (09:12)
--- NOTE | 2017-12-22 09:28 | Cardiothoracic Progress Note ---
Date of Encounter: 12/22/17 Time of Encounter: 09:26 - Assessment and plan (1) UTI (urinary tract infection) Current Visit: Yes Status: Acute The patient is a 77 year old type II diabetic, hypertensive lady with known CAD and hypercholesterolemia who was admitted to the [facility] for elective cardiac catheterization. The patient's cardiac history dates back to 2007 which time she underwent PCI with RCA stent placement. She states that she did well until recently, when she began experiencing shortness of breath and dyspnea on exertion. She lives in a bilevel house and has 2 climb stairs throughout the day. She states that at the top of each flight of stairs she will have shortness of breath and dyspnea exertion. In addition, the patient has lower back pain and has been scheduled for a lumbar laminectomy with fusion and posterior spinal instrumentation. Given her presenting symptoms, previous RCA stent placement, and cardiac risk profile she was recommended for cardiac workup prior to her spinal operation. A nuclear stress test revealed an LVEF 49% with cassandra-infarct ischemia involving the distal anterior wall and the distal anteroseptum. She was recommended for cardiac catheterization which was performed today. This study revealed severe 3 vessel CAD and an LVEF 40%. In particular, the patient has a 60% distal left main lesion, a 99% ostial/proximal LAD lesion, an 80% mid LAD lesion, an 80% ostial D1 lesion, a 40% proximal LCx lesion, a 30% mid LCx lesion, a completely occluded proximal RCA which fills distally via vwox-he-satne collaterals. She has been recommended for CABG which had been scheduled for 12/22/2017. Unfortunately the patient developed urinary tract infection in the culture results revealed an enterococcus organism. She is on appropriate antibiotics and these will be continued for several days. After the antibiotic course the patient will undergo a straight catheter urinalysis to be certain that the UTI has been cleared. She will then be rescheduled for CABG next week. The patient may be discharged home at the discretion of the hospitalist. She should main off her Plavix until after her CABG. Qualifiers: Urinary tract infection type: acute cystitis Hematuria presence: without hematuria Qualified Code(s): N30.00 - Acute cystitis without hematuria - Subjective Interval history: The patient is resting comfortably in her hospital bed. She has no complaints. She had some confusion last night and difficulty with word performing; however , this morning she is appropriate and speaking freely. Vital Signs, Last 4 Hours Temp Pulse Resp BP Pulse Ox 12/22/17 06:48 98.4 F 71 16 127/68 94 Oxgyen Flow Rate Oxygen Flow Rate (LPM) 2 Clinical Data, last 8 Hours Output, Urine Amount 220 Output, Urine Amount 25 Weight 12/20/17 12/21/17 12/22/17 23:59 23:59 23:59 Weight 83 kg 83.2 kg 84 kg - Physical Examination General: Conversant, No Apparent Distress Neck: No JVD, Normal carotid pulses Cardiac: Reg Rate and Rhythm, Normal S1 and S2, No Murmur Lungs: Normal Breath Sounds, No Wheeze, Rales, Rhonchi Neuro: Alert and responsive, No focal deficits noted Musculoskeletal: No Chest Wall Tenderness Extremities: No Clubbing, No Cyanosis, No Edema - Labs 12/22/17 03:00 12/22/17 03:00 Lab Results, Last 24 hours 12/22/17 12/22/17 03:00 03:00 WBC 5.2 Hgb 11.2 L Hct 34.3 L Plt Count 139 L Sodium 135 L Potassium 3.7 Chloride 101 Carbon Dioxide 29 BUN 10 Creatinine 0.86 Glucose 158 H Calcium 8.5 L Total Bilirubin 0.4 AST 13 ALT 8 Alkaline Phosphatase 56 Consult Discharge Plan - Plan Referrals: Tamela Smith CNP [Primary Care Provider] -
[2017-12-22] MEDS: *HR* LORazepam 1 MG TABLET PO PRN ×2 (11:01→20:27)
--- NOTE | 2017-12-22 14:08 | Internal Med Progress Note ---
Date of Encounter: 12/22/17 Time of Encounter: 14:06 - Assessment and plan (1) UTI (urinary tract infection) Current Visit: Yes Status: Acute Assessment and plan: Acute metabolic encephalopathy possibly due to UTI Pt. denies urinary sx but reports hx off UTIs in past. Culture growin enterococcus Discontinue ceftriaxone day#3 as cephalosporins may not treat an enterococcal infection efficiently Start amoxicillin oral Family is concerned of the patient has been confused, she prefers to stay another night and to be evaluated by the physical therapy team Monitor I&O. Cultures pending Qualifiers: Urinary tract infection type: acute cystitis Hematuria presence: without hematuria Qualified Code(s): N30.00 - Acute cystitis without hematuria (2) CAD (coronary artery disease) Current Visit: Yes Status: Chronic Assessment and plan: Three-vessel CAD CABG scheduled for 12/22/17 was cancelled due to UTI Most likely will be rescheduled for next week Pt. had recent heart cath on 12/16/[address] [facility] that showed an LVEF 40%. In particular, the patient has a 60% distal left main lesion, a 99% ostial/ proximal LAD lesion, an 80% mid LAD lesion, an 80% ostial D1 lesion, a 40% proximal LCx lesion, a 30% mid LCx lesion, a completely occluded proximal RCA which fills distally via [id number]-ev-[id number] collaterals. Continuous cardiac telemetry. Continue pts. aspirin, Zocor, amlodipine, and Coreg. PT OT consulted Qualifiers: Coronary Disease-Associated Artery/Lesion type: [place] artery [place] vs. transplanted heart: [place] heart Associated angina: with other forms of angina Qualified Code(s): I25.118 - Atherosclerotic heart disease of [place] coronary artery with other forms of angina pectoris (3) Intractable low back pain Current Visit: Yes Status: Acute Assessment and plan: Acute on chronic low back pain. 3V lumbar spine XR today showed grade 1 anterolisthesis of L4 on L5 and L5 on S1. Mild multilevel degenerative changes without acute osseous abnormality. Osteopenia. Patient reports she was due to have back surgery this past Friday but was unable to do so due to discovered need for triple bypass surgery. Plan is to continue with back surgery post-bypass surgery. Minimize the use of Flexeril for reported muscle spasms. (4) Hx of non-Hodgkin's lymphoma Current Visit: No Status: Resolved Assessment and plan: Hx of non-Hodgkins lymphoma in 2006 and 2008. Resolved. (5) Diabetes Current Visit: Yes Status: Chronic Assessment and plan: Hx of chronic DM controlled w/insulin. Will administer low-dose correction insulin sliding scale and hypoglycemic protocol. Hemoglobin A1c 7.5 Qualifiers: Diabetes mellitus type: type 2 Diabetes mellitus extermination supervisor insulin use: unspecified half-way insulin use status Diabetes mellitus complication status : with unspecified complications Qualified Code(s): E11.8 - Type 2 diabetes mellitus with unspecified complications (6) HLD (hyperlipidemia) Current Visit: Yes Status: Chronic Assessment and plan: Continue pts. Zocor. Qualifiers: Hyperlipidemia type: pure hypercholesterolemia Qualified Code(s): E78.00 - Pure hypercholesterolemia, unspecified; E78.0 - Pure hypercholesterolemia (7) HTN (hypertension) Current Visit: Yes Status: Chronic Assessment and plan: Continue pts. amlodipine and Coreg. Qualifiers: Hypertension type: essential hypertension Qualified Code(s): I10 - Essential (primary) hypertension (8) Anxiety and depression Current Visit: Yes Status: Chronic Assessment and plan: Hx of anxiety and depression. Continue patient's Effexor and doxepin. - Time Spent With Patient Total time spent is greater than 50% in coordination of care (as documented) at patient's floor/unit and/or counseling patient: - Subjective Interval history: Was confused last night, still complains of severe back pain, denies any dysuria , no chest or shortness of breath, fevers or chills, no diarrhea - Constitutional Vitals: Temp Pulse Resp BP Pulse Ox 98.1 F 77 16 135/65 95 12/22/17 11:34 12/22/17 11:34 12/22/17 11:34 12/22/17 11:34 12/22/17 11:34 General appearance: Present: cooperative, mild distress (Back pain), A&O X 3, pleasant, obese, answers questions appropriately Exam: - Head Head exam: Present: atraumatic, normocephalic - Eye Eye exam: Present: PERRL, conjuntiva pink, sclera anicteric Pupils: Present: PERRL - Neck Neck exam general surgery: Present: supple, trachea midline. Absent: lymphadenopathy - Respiratory Respiratory exam: Present: CTAB. Absent: accessory muscle use, rales, rhonchi, wheezes - Cardiovascular Cardiovascular exam: Present: RRR, +S1, +S2. Absent: diastolic murmur, gallop, rubs, systolic murmur - GI/Abdominal GI/Abdominal exam: Present: normal bowel sounds, soft, no peritoneal signs. Absent: distended, tenderness - Extremities Exam Extremities exam: Present: warm, radial pulses palpable and symmetrical. Absent : calf tenderness, cyanotic, pedal edema - Neurological Exam Neurological exam: Present: CN II-XII intact, oriented X3, no focal deficits. Absent: pronater drift, facial droop, speech deficit - Skin Skin exam: Present: dry, intact Additional comments: Bilateral leg weakness secondary to intractable back pain Internal Medicine: Result - Labs CBC & Chem 7: 12/22/17 03:00 12/22/17 03:00 Labs: Short CBC 12/22/17 Range/Units 03:00 WBC 5.2 (4.3-11.1) K/mcL Hgb 11.2 L (11.5-15.4) g/dL Hct 34.3 L (35.3-44.9) % Plt Count 139 L (140-400) K/mcL Neutrophils # 3.0 (1.6-8.9) K/mcL BMP 12/22/17 03:00 Sodium 135 L Potassium 3.7 Chloride 101 Carbon Dioxide 29 BUN 10 Creatinine 0.86 Glucose 158 H Calcium 8.5 L Liver Function 12/22/17 Range/Units 03:00 Total Bilirubin 0.4 (0.3-1.0) mg/dL AST 13 (13-39) Units/L ALT 8 (7-52) Units/L Alkaline Phosphatase 56 (34-104) Units/L Albumin 3.6 (3.5-5.7) g/dL Consult Discharge Plan - Plan Referrals: Tamela Smith, WOOD COATER [Primary Care Provider] -
[2017-12-22] MEDS: Amoxicillin 500 MG CAPSULE PO SCH ×3 (16:38→20:27)
[2017-12-22] MEDS: *HR* HYDROcodone/Acet 7.5/325 mg TABLET PO PRN (20:21)
[2017-12-23] MEDS: *HR* OxyCODONE/APAP 10/325 TABLET PO PRN ×2 (03:55→09:12)
[2017-12-23 05:00] LABS: Basophils % 0.4 %; Eosinophils # 0.3 K/mcL (0.0-0.6); Eosinophils % 5.5 %; Hematocrit 39.4 % (35.3-44.9); Immature Granulocytes % 0.4 % (0-4); Lymphocytes # 0.8 K/mcL (0.6-4.6); Lymphocytes % 15.5 %; Mean Corpuscular HGB Conc 34.3 g/dL (31.6-35.5); Mean Corpuscular Hemoglobin 31.8 pg (28.0-33.3); Mean Corpuscular Volume 92.9 fL (83.0-100.0); Monocytes # 0.5 K/mcL (0.0-1.3); Monocytes % 9.6 %; Neutrophils # 3.7 K/mcL (1.6-8.9); Platelet Count 185 K/mcL (140-400); Red Blood Count 4.24 M/mcL (3.82-4.97); Red Cell Distribution Width 13.5 % (11.5-14.5); Segmented Neutrophils % 68.6 %
[2017-12-23 05:01] LABS: Hemoglobin 13.5 g/dL (11.5-15.4)
[2017-12-23 05:23] LABS: Alanine Aminotransferase 9 Units/L (7-52); Albumin/Globulin Ratio 1.7 (1.1-2.2); Alkaline Phosphatase 67 Units/L (34-104); Aspartate Amino Transferase 16 Units/L (13-39); BUN/Creatinine Ratio 14 (6-26); Bilirubin,Total 0.4 mg/dL (0.3-1.0); Blood Urea Nitrogen 9 mg/dL (8-23); Calcium 9.2 mg/dL (8.6-10.3); Carbon Dioxide 23 mEq/L (23-29); Chloride 102 mEq/L (98-107); Globulin 2.3 g/dL (2.4-3.5); Glucose 187 mg/dL (70-105); Osmolality,Calculated 286 (280-300); Potassium 3.7 mEq/L (3.5-5.1); Sodium 136 mEq/L (136-145); Total Protein 6.3 g/dL (6.4-8.9); eGFR For African Americans > 60 (> 60); eGFR For Non-African Americans > 60 (> 60)
--- NOTE | 2017-12-23 07:48 | Discharge Summary ---
<Lul Wyatt - Last Filed: 12/23/17 18:01> - NOTES TO OUTPATIENT PROVIDER Notes to Outpatient Provider: The patient was seen at [facility] for generalized weakness and low back pain. She was admitted with a UTI from enteroccocus. She was scheduled to have a CABG on 12/22, however she was unable to tolerate the surgery. Orders not resulted at time of discharge: Pending orders 12/24/17 04:00 Complete Blood Count [HEME] AM 0400 Comprehensive Metabolic Panel AM 0400 12/25/17 04:00 Complete Blood Count [HEME] AM 0400 Comprehensive Metabolic Panel AM 0400 Date of Encounter: 12/23/17 Time of Encounter: 08:45 - Discharge Diagnosis (1) UTI (urinary tract infection) Priority: Primary Status: Acute Qualifiers: Urinary tract infection type: acute cystitis Hematuria presence: without hematuria Qualified Code(s): N30.00 - Acute cystitis without hematuria (2) CAD (coronary artery disease) Priority: Secondary Status: Chronic Qualifiers: Coronary Disease-Associated Artery/Lesion type: [place] artery [place] vs. transplanted heart: [place] heart Associated angina: with other forms of angina Qualified Code(s): I25.118 - Atherosclerotic heart disease of [place] coronary artery with other forms of angina pectoris (3) Intractable low back pain Priority: Secondary Status: Acute (4) Diabetes Priority: Secondary Status: Chronic Qualifiers: Diabetes mellitus type: type 2 Diabetes mellitus skilled nursing insulin use: unspecified manager intermediate insulin use status Diabetes mellitus complication status : with unspecified complications Qualified Code(s): E11.8 - Type 2 diabetes mellitus with unspecified complications; Z79.4 - half-way (current) use of insulin (5) HLD (hyperlipidemia) Priority: Secondary Status: Chronic Qualifiers: Hyperlipidemia type: pure hypercholesterolemia Qualified Code(s): E78.00 - Pure hypercholesterolemia, unspecified (6) HTN (hypertension) Priority: Secondary Status: Chronic Qualifiers: Hypertension type: essential hypertension Qualified Code(s): I10 - Essential (primary) hypertension (7) Anxiety and depression Priority: Secondary Status: Chronic Hospital course: Ms. Chavez is a 77 year old female with history of non-Hodgkin's lymphoma in remission, diabetes mellitus, hypertension, severe cardiomyopathy with 3 vessel disease requiring CABG who presented to the ED with 24-hour history of significant weakness and lethargy. The patient was planning to have a surgery for chronic low back pain but was referred for cardiac clearance at which time it was determined that she had significant cardiomyopathy with human changes on nuclear medical stress test. Left heart catheter at that time demonstrated three-vessel disease and she was referred for CABG which was supposed to be performed yesterday 12/22, however she presented to the ED with these symptoms. At that time it was found that she had positive urinary tract infection which would go on to grow enterococcus. She was initially started on ceftriaxone and then later was transitioned to amoxicillin. The patient continued to improve clinically and on labs, despite initially having some encephalopathy. Some of this encephalopathy may have been related to medication changes. Patient had improved significantly clinically today and is stable for medical discharge on by mouth antibiotics. We will also give a few days of pain medication to last the patient until follow-up with primary care can be established in 2-3 days. The patient's family is in the room and understands the plan. The patient agrees to this plan. Discharge discussed with: patient, family, nurse, case management, supply chain consultant - Time Spent with Patient Total time spent providing and/or coordinating discharge services: Greater than 30 minutes - Discharge Medications Prescriptions: HYDROcodone/Acet 7.5/325 mg [[place] 7.5-325 mg] 1 tab PO Q6HR PRN 4 Days #16 tablet PRN Reason: Moderate Pain Amoxicillin [Amoxil] 500 mg PO TID 6 Days #18 capsule Walker - Rollator [ROLLATOR] 1 each .ROUTE AD #1 each Home Medications: Amlodipine Besylate 2.5 mg PO DAILY 12/20/17 [History] Aspirin [Adult Aspirin Regimen] 81 mg PO DAILY 12/20/17 [History] Carvedilol [Coreg] 6.25 mg PO BID 12/20/17 [History] Clopidogrel [Plavix] 75 mg PO DAILY 12/20/17 [History] Doxepin HCl 150 mg PO HS 12/20/17 [History] Gabapentin [Neurontin] 100 - 200 mg PO BID 12/20/17 [History] HYDROcodone/Acet 7.5/325 mg [[place] 7.5-325 mg] 1 tab PO TID PRN 12/20/17 [ History] Insulin ASPART [Novolog Flexpen] 5 - 24 unit SQ TIDWM 12/20/17 [History] Insulin Glargine,Hum.rec.anlog [Basaglar Alethaikpen U-100] 15 unit SQ HS 12/20/17 [ History] LORazepam [Ativan] 0.5 - 1 mg PO TID PRN 12/20/17 [History] Levothyroxine Sodium 100 mcg PO DAILY 12/20/17 [History] Multivitamin [One Daily Essential] 1 tab PO DAILY 12/20/17 [History] Sennosides [Senokot] 8.6 mg PO DAILY PRN 12/20/17 [History] Simvastatin [Zocor] 20 mg PO HS 12/20/17 [History] Venlafaxine XR (24 HR) [Effexor Xr] 37.5 mg PO DAILY 12/20/17 [History] Amoxicillin [Amoxil] 500 mg PO TID 6 Days #18 capsule 12/23/17 [Rx] HYDROcodone/Acet 7.5/325 mg [[place] 7.5-325 mg] 1 tab PO Q6HR PRN 4 Days #16 tablet 12/23/17 [Rx] Walker - Rollator [ROLLATOR] 1 each .ROUTE AD #1 each 12/23/17 [Rx] Allergies/Adverse Reactions: 3 Allergy/AdvReac Type Severity Reaction Status Date / Time shellfish derived AdvReac Vomiting Verified 12/20/17 15:32 Date of admission: 12/20/17 15:43 Primary care physician: Tamela Smith CNP Consults: 12/20/17 17:45 Consult to Ski Instructor [CONS] Routine Reason for SW Consult: Please assess patient for possible home needs for post -discharge planning. 12/22/17 16:33 Consult to Physical Therapy [CONS] Routine Comment: Evaluate, develop and implement POC Reason for Consult: EVAL AND TREAT Does patient have active BEDREST order?: No Is patient medically & hemodynamically stable?: Yes Discharging clinician: Lul Wyatt Anticipated date of discharge: 12/23/17 - Constitutional Vitals: Temp Pulse Resp BP Pulse Ox 98.3 F 90 16 116/73 91 12/23/17 07:02 12/23/17 07:02 12/23/17 07:02 12/23/17 07:02 12/23/17 07:02 General appearance: Present: cooperative, mild distress (Back pain), A&O X 3, pleasant, obese, answers questions appropriately Exam: Gen: Vitals noted. No acute distress. Frail appearing HEENT: PERRL/EOMI, oropharynx clear, Normocephalic, atraumatic Neck: Supple. No adenopathy. Cardiac: RRR, no murmur, +S1/S2 Pulmonary: CTA bilaterally, no wheezes, rales or rhonchi, equal chest expansion Abdomen: soft, nontender, BS noted, no guarding Back: Nontender throughout. MSK: ROM intact, no joint swelling noted Extremities: no BLE edema, nontender calf, no cyanosis or clubbing Neuro: A&Ox3, moves all extremities, no focal deficits Psych: Appropriate mood and behavior - Patient Status Disposition: Home Health Service Condition: Good Functional capacity at discharge: uses cane/walker Overall status at discharge: patient is not back to baseline - Discharge Instructions Instructions: Hydrocodone/Acetaminophen (By mouth), Amoxicillin (By mouth), Urinary Tract Infection in Women (DC), Diabetes Mellitus Type 2 in Adults (DC), Sepsis (DC), Chronic Hypertension (DC), Anemia (GEN) Follow Up With: Tamela Smith CNP [Primary Care Provider] - 12/24/17 2:00 pm Additional Instructions: Continue antibiotics as directed Monitor for fevers, chills, increased urinary symptoms. Return to the ED for any of the symptoms. Follow-up with cardiothoracic surgery as directed - Diet and Activity Activity: ambulate only with your walker, as per physical therapy, increase activity as tolerated Diet: advance to your usual diet <Bernabe Espinoza - Last Filed: 12/23/17 18:18> Date of Encounter: 12/23/17 - Discharge Diagnosis (1) UTI (urinary tract infection) Status: Acute Qualifiers: Urinary tract infection type: acute cystitis Hematuria presence: without hematuria Qualified Code(s): N30.00 - Acute cystitis without hematuria (2) CAD (coronary artery disease) Status: Chronic Qualifiers: Coronary Disease-Associated Artery/Lesion type: [place] artery [place] vs. transplanted heart: [place] heart Associated angina: with other forms of angina Qualified Code(s): I25.118 - Atherosclerotic heart disease of [place] coronary artery with other forms of angina pectoris (3) Intractable low back pain Status: Acute (4) Diabetes Status: Chronic Qualifiers: Diabetes mellitus type: type 2 Diabetes mellitus manager intermediate insulin use: with skilled nursing use Diabetes mellitus complication status: with circulatory complication Diabetes mellitus complication detail: with other circulatory complications Qualified Code(s): E11.59 - Type 2 diabetes mellitus with other circulatory complications; Z79.4 - manager intermediate (current) use of insulin (5) HLD (hyperlipidemia) Status: Chronic Qualifiers: Hyperlipidemia type: mixed hyperlipidemia Qualified Code(s): E78.2 - Mixed hyperlipidemia (6) HTN (hypertension) Status: Chronic Qualifiers: Hypertension type: essential hypertension Qualified Code(s): I10 - Essential (primary) hypertension (7) Anxiety and depression Status: Chronic Hospital course: Ms. Chavez is a 77 year old female - Time Spent with Patient Total time spent providing and/or coordinating discharge services: Date of admission: 12/20/17 15:43 Primary care physician: Tamela Smith CNP Consults: 12/20/17 17:45 Consult to Ski Instructor [CONS] Routine Reason for SW Consult: Please assess patient for possible home needs for post -discharge planning. 12/22/17 16:33 Consult to Physical Therapy [CONS] Routine Comment: Evaluate, develop and implement POC Reason for Consult: EVAL AND TREAT Does patient have active BEDREST order?: No Is patient medically & hemodynamically stable?: Yes - Constitutional Vitals: Temp Pulse Resp BP Pulse Ox 97.9 F 80 16 147/73 91 12/23/17 12:17 12/23/17 12:17 12/23/17 12:17 12/23/17 12:17 12/23/17 07:02 - Attending Attestation I examined this patient and my medical decision-making was reviewed with the Resident Physician on 12/23/17. I agree with the documented findings, disposition and treatment plan as described except to the extent set forth below. Ms Chavez has been in observation for UTI and low back pain. She has grown enterococcus in her urine and is tolerating PO amoxicillin. HHC has been recommended. She is now afebrile and ready for discharge home. Exam alert Comfortable Mucus membranes dry Heart reg No wheeze Plan D/C home today.
[2017-12-23] MEDS: Aspirin Enteric Coated 81 MG Tablet PO SCH (07:51)
[2017-12-23] MEDS: Amoxicillin 500 MG CAPSULE PO SCH ×2 (07:51→13:20)
[2017-12-23] MEDS: Gabapentin 100 MG CAPSULE PO SCH (07:51)
[2017-12-23] MEDS: Multivit/Ca/Min/Fe/FA 1 TAB TABLET PO SCH (07:51)
[2017-12-23] MEDS: amLODIPine 5 MG TABLET PO SCH (07:51)
[2017-12-23] MEDS: Venlafaxine XR (24 HR) 37.5 MG CAP.ER.24H PO SCH (07:51)
[2017-12-23] MEDS: Insulin LISPRO 300 UNITS/3 ML VIAL SQ SCH ×2 (07:57→12:39)
--- NOTE | 2017-12-23 11:40 | Physician Discharge Referral ---
Home Health/Hosp Referral Info Transfer to: Home Health Attending Provider: Bernabe Espinoza DO Provider in Charge Post Discharge: PCP - Diagnosis (1) UTI (urinary tract infection) Priority: Primary Status: Acute (2) CAD (coronary artery disease) Priority: Secondary Status: Chronic (3) Intractable low back pain Priority: Secondary Status: Acute (4) Diabetes Priority: Secondary Status: Chronic (5) HLD (hyperlipidemia) Priority: Secondary Status: Chronic (6) HTN (hypertension) Priority: Secondary Status: Chronic (7) Anxiety and depression Priority: Secondary Status: Chronic - Respiratory Orders Oxygen / L per min Smoking Cessation: Smoking cessation has been advised. For more information, call the [place] Tobacco Quit Line at 1-749-QVZC-NOW. - Diet/Nutrition Diet/Nutrition Orders: Regular - Activity Activity Orders: Walker - Services Needed Following services are medically necessary services: Nursing, Home Health Aide, Physical Therapy, Occupational Therapy - Transfer Medications Prescriptions: HYDROcodone/Acet 7.5/325 mg [[place] 7.5-325 mg] 1 tab PO Q6HR PRN 4 Days #16 tablet PRN Reason: Moderate Pain Amoxicillin [Amoxil] 500 mg PO TID 6 Days #18 capsule Walker - Rollator [ROLLATOR] 1 each .ROUTE AD #1 each Home Medications: Amlodipine Besylate 2.5 mg PO DAILY 12/20/17 [History] Aspirin [Adult Aspirin Regimen] 81 mg PO DAILY 12/20/17 [History] Carvedilol [Coreg] 6.25 mg PO BID 12/20/17 [History] Clopidogrel [Plavix] 75 mg PO DAILY 12/20/17 [History] Doxepin HCl 150 mg PO HS 12/20/17 [History] Gabapentin [Neurontin] 100 - 200 mg PO BID 12/20/17 [History] HYDROcodone/Acet 7.5/325 mg [[place] 7.5-325 mg] 1 tab PO TID PRN 12/20/17 [ History] Insulin ASPART [Novolog Flexpen] 5 - 24 unit SQ TIDWM 12/20/17 [History] Insulin Glargine,Hum.rec.anlog [Basaglar Kwikpen U-100] 15 unit SQ HS 12/20/17 [ History] LORazepam [Ativan] 0.5 - 1 mg PO TID PRN 12/20/17 [History] Levothyroxine Sodium 100 mcg PO DAILY 12/20/17 [History] Multivitamin [One Daily Essential] 1 tab PO DAILY 12/20/17 [History] Sennosides [Senokot] 8.6 mg PO DAILY PRN 12/20/17 [History] Simvastatin [Zocor] 20 mg PO HS 12/20/17 [History] Venlafaxine XR (24 HR) [Effexor Xr] 37.5 mg PO DAILY 12/20/17 [History] Amoxicillin [Amoxil] 500 mg PO TID 6 Days #18 capsule 12/23/17 [Rx] HYDROcodone/Acet 7.5/325 mg [[place] 7.5-325 mg] 1 tab PO Q6HR PRN 4 Days #16 tablet 12/23/17 [Rx] Walker - Rollator [ROLLATOR] 1 each .ROUTE AD #1 each 12/23/17 [Rx] Allergies/Adverse Reactions: 3 Allergy/AdvReac Type Severity Reaction Status Date / Time shellfish derived AdvReac Vomiting Verified 12/20/17 15:32 Certification: Further, I certify that my clinical findings support that this patient is homebound (i.e. absences from home require considerable and taxing effort and are for medical reasons or uatsdin services or infrequently or short duration when for other reasons) because: Homebound Reason: Patient requires assistance of a person or device to safely leave home, Leaving home requires considerable and taxing effort due to condition Attestation: My signature below is to certify that this patient is under my care and that I, or nurse practitioner, or a physician's sales office assistant working with me, has a face-to -face encounter with this patient.
[2017-12-23 12:20] VITALS: BP 147/73
[2017-12-23] MEDS: *HR* LORazepam 1 MG TABLET PO PRN (12:39)
[2017-12-23] MEDS: *HR* HYDROcodone/Acet 7.5/325 mg TABLET PO PRN (12:50)
== END 2017-12-23 13:34 | disposition home health service (06) ==
LOC: 2NENU 12:11 → EMEROO 12:11 → SUATTDRO 15:43 → 2NENU 16:46
PROVIDERS: ADMIT Hospitalist; ATTEND Internal Medicine

== ENCOUNTER 2017-12-31 06:25 | Inpatient (IN) ==
--- NOTE | 2017-12-29 08:06 | Anesthesia Evaluation PreOp ---
Date of Encounter: 12/31/17 Time of Encounter: 07:13 - Past History Planned Operation: CABG Cardiac History: HTN, Hyperlipidemia, Cardiac Stent (RCA 2007), Other (CAD) Pulmonary History: Denies Any Significant HX SEAM HAMMERER History: Denies Any Significant HX Other Medical History: Diabetes Type II, Thyroid (Hypo), Other (Non-Hodgkins Lymphoma, obesity) Anesthesia History: No Prior Anesthetic Complications, Past Anesthesia (MAURICIO, port placement) Alcohol Use: none Drug use: none Medications and Allergies Amlodipine Besylate 2.5 mg PO DAILY 12/20/17 [History] Aspirin [Adult Aspirin Regimen] 81 mg PO DAILY 12/20/17 [History] Carvedilol [Coreg] 6.25 mg PO BID 12/20/17 [History] Clopidogrel [Plavix] 75 mg PO DAILY 12/20/17 [History] Doxepin HCl 150 mg PO HS 12/20/17 [History] Gabapentin [Neurontin] 100 - 200 mg PO BID 12/20/17 [History] HYDROcodone/Acet 7.5/325 mg [[place] 7.5-325 mg] 1 tab PO TID PRN 12/20/17 [ History] Insulin ASPART [Novolog Flexpen] 5 - 24 unit SQ TIDWM 12/20/17 [History] Insulin Glargine,Hum.rec.anlog [Basaglar Kwikpen U-100] 15 unit SQ HS 12/20/17 [ History] LORazepam [Ativan] 0.5 - 1 mg PO TID PRN 12/20/17 [History] Levothyroxine Sodium 100 mcg PO DAILY 12/20/17 [History] Multivitamin [One Daily Essential] 1 tab PO DAILY 12/20/17 [History] Sennosides [Senokot] 8.6 mg PO DAILY PRN 12/20/17 [History] Simvastatin [Zocor] 20 mg PO HS 12/20/17 [History] Venlafaxine XR (24 HR) [Effexor Xr] 37.5 mg PO DAILY 12/20/17 [History] Amoxicillin [Amoxil] 500 mg PO TID 6 Days #18 capsule 12/23/17 [Rx] HYDROcodone/Acet 7.5/325 mg [[place] 7.5-325 mg] 1 tab PO Q6HR PRN 4 Days #16 tablet 12/23/17 [Rx] Walker - Rollator [ROLLATOR] 1 each .ROUTE AD #1 each 12/23/17 [Rx] 3 Allergy/AdvReac Type Severity Reaction Status Date / Time shellfish derived AdvReac Vomiting Verified 12/20/17 15:32 - Meds/Allergy Pre-op Review Medications Reviewed: Yes Allergies Reviewed: Yes Beta Blockers on Current Med List: Yes If Beta Blockers taken, Date/Time (Last Dose taken): today 0600 Anesthesia Results - Labs Laboratory Tests 12/10/17 12/21/17 12/23/17 13:03 02:46 04:04 Hgb 13.5 D Hct 39.4 Plt Count 185 PT 12.9 H INR 1.2 Sodium Potassium BUN Creatinine Hemoglobin A1c 7.5 H 12/23/17 04:04 Hgb Hct Plt Count PT INR Sodium 136 Potassium 3.7 BUN 9 Creatinine 0.63 Hemoglobin A1c - Imaging EKG: report reviewed (SINUS RHYTHM POSSIBLE ANTERIOR MYOCARDIAL INFARCTION, OF INDETERMINATE AGE) Additional studies: stress test: Impression: Partially fixed perfusion defect involving the apical wall and surrounding apical segments with worsening of perfusion in the distal anterior wall and distal anteroseptum. Findings represent infarct with cassandra-infarct ischemia. Pharmacologic stress ECG is negative for ischemia at level of heart rate achieved. No appreciable change from baseline ECG. Gated EF = 49%. There is transient ischemic dilatation. Cath: Impressions: Triple vessel coronary artery disease. Moderate LV dysfunction. EF 40% Anesthesia Exam Selected Entries 12/31/17 06:49 Temperature 98.0 F Pulse Rate 78 Respiratory Rate 18 Blood Pressure 122/69 O2 Sat by Pulse Oximetry 93 Weight: 83kg NPO (# of Hours): 8 - HEENT Pupil (Motor): EOMI Mallampati: II Teeth: Edentulous Oral Opening: Greater than 3 - SEAM HAMMERER LOC: Oriented SEAM HAMMERER Motor: Normal RUE, Normal LUE, Normal RLE, Normal LLE, Normal Face SEAM HAMMERER Sensory: Normal: RUE, LUE, RLE, LLE, Face - Cardiac Rhythm: Regular Murmur: None - Pulmonary Breath Sounds: bilateral Clear Respiratory Effort: Symmetrical Anesthesia Assess/Plan ASA Score: 4 Modified [place] Scale for Level of Consciousness: Cooperative, oriented, and tranquil Anesthetic Plan: General Monitoring Plan: Standard Monitors, A-Line, PAC, JUAN Recovery Plan: ICU (agrees to GA, lines, JUAN and blood products)
[~2017-12-31 06:25] MED LIST: Dextrose 50 % in Water (Vial) 30 ML, Sodium Bicarbonate 20 MEQ, Potassium Chloride 15 M... TH ONE; Insulin Human Regular 100 UNIT in 0.9 % Sodium Chloride 100 ML IV PRN; Norepinephrine 4 MG in D5% in Water 250 ML IVC PRN
[2017-12-31] MEDS ORDERED: *HR* Etomidate 20 MG/10 ML AMPUL IVP ONE (06:39)
[2017-12-31] MEDS ORDERED: Famotidine 20 MG/2 ML VIAL ONE (06:39)
[2017-12-31] MEDS ORDERED: Protamine Sulfate 250 MG/25 ML VIAL IVP ONE (06:39)
[2017-12-31] MEDS ORDERED: Tranexamic Acid 1,000 MG/10 ML VIAL ONE (06:39)
[2017-12-31] MEDS ORDERED: *HR* Rocuronium Bromide 50 MG/5 ML VIAL ONE (06:39)
[2017-12-31] MEDS ORDERED: *HR* Midazolam HCl 5 MG/5 ML VIAL IVP ONE (06:44)
[2017-12-31] MEDS ORDERED: *HR* FentaNYL (PF) 1,000 MCG/20 ML VIAL ONE (06:44)
[2017-12-31] MEDS ORDERED: NiCARdipine 2.5 MG/10 ML Syringe IVPB ONE (06:53)
[2017-12-31] MEDS ORDERED: Nitroglycerin 25 MG/250 ML INFUS..BTL IVC ONE (06:53)
[2017-12-31] MEDS ORDERED: Aspirin 81 MG TAB.CHEW PO ONE (06:55)
[2017-12-31] MEDS ORDERED: CeFAZolin Syr 2,000MG/20 ML 2,000 MG/20 ML SYRINGE IVPB ONE (06:55)
[2017-12-31] MEDS ORDERED: Chlorhexidine Rinse 15 ML MOUTHWASH MM ONE (06:56)
[2017-12-31] MEDS ORDERED: Ringers Solution, Lactated 1,000 ML IVC SCH (07:00)
[2017-12-31] MEDS ORDERED: *HR* PHENYLEPHRINE 1,000 MCG/10 ML SYRINGE IVP ONE ×2 (07:03→09:42)
--- NOTE | 2017-12-31 07:16 | History & Physical Report ---
Date of Encounter: 12/31/17 Time of Encounter: 07:15 24 Hour HP Update - Instructions Instructions: If the History and Physical is less than 30 days old and was completed prior to A.M. admission and or procedure and has NOT been updated on calendar day of procedure please complete this update prior to performing procedure. - Update Patient reports changes in Medical Condition: No Changes in examination, assessment, or condition: No Changes in Medication: No Preop tests/diagnostics Reviewed: Yes Pre-Op MRSA Screen: Negative Surgery Remains Indicated: Yes Consent for Planned Operative Procedure(s) Verified: Yes - Pre-Operative Checklist Preoperative Checklist Indicated: No Prophylactic Antibiotic Ordered: Yes Home Medications Include Beta Keturah: Yes Beta Keturah Taken Today (Day of Surgery): Yes Beta Keturah Taken Yesterday (Day Prior to Surgery): Yes Is VTE Prophylaxis Indicated?: NO
[2017-12-31 08:06] LABS: ABG Base Excess -2 mEq/L (-2 to 3); ABG Chloride 107 mEq/L (98-107); ABG Glucose 132 mg/dL (60-95); ABG HCO3 26 mEq/L (21-27); ABG Ionized Calcium 1.01 mmol/L (1.15-1.35); ABG Oxygen Saturation 95 % (95-98); ABG PCO2 62 mmHg (35-45); ABG PH 7.23 pH Units (7.32-7.45); ABG PO2 94 mmHg (85-104); ABG TCO2 28 mEq/L (20-26)
[2017-12-31 09:38] LABS: ABG Base Excess -3 mEq/L (-2 to 3); ABG Chloride 107 mEq/L (98-107); ABG Glucose 103 mg/dL (60-95); ABG HCO3 22 mEq/L (21-27); ABG Ionized Calcium 0.97 mmol/L (1.15-1.35); ABG Oxygen Saturation 100 % (95-98); ABG PCO2 36 mmHg (35-45); ABG PH 7.39 pH Units (7.32-7.45); ABG PO2 193 mmHg (85-104); ABG TCO2 23 mEq/L (20-26)
[2017-12-31 10:10] LABS: ABG Base Excess -3 mEq/L (-2 to 3); ABG Chloride 105 mEq/L (98-107); ABG Glucose 75 mg/dL (60-95); ABG HCO3 22 mEq/L (21-27); ABG Ionized Calcium 1.76 mmol/L (1.15-1.35); ABG Oxygen Saturation 100 % (95-98); ABG PCO2 38 mmHg (35-45); ABG PH 7.37 pH Units (7.32-7.45); ABG PO2 198 mmHg (85-104); ABG TCO2 23 mEq/L (20-26)
--- NOTE | 2017-12-31 10:25 | Anesthesia Procedures ---
Date of Encounter: 12/31/17 Time of Encounter: :23 Procedures: Anesthesia - Arterial Line Consent obtained: written consent Time out performed: Yes Sedation: Versed (mg): 2 Sedation: Fentanyl (mcg): 100 Supplemental Oxygen via Nasal Cannula (L/min): 2 Local Anesthetic: Lidocaine 1% Amount of Anesthetic used (mls): 1 Size (Gauge): 20 Length (inches): 5 Technique Used: sterile prep, guide wire technique, direct puncture technique Post-Procedure: line taped into place, dry sterile dressing placed Patient tolerated procedure: well, no complications Complications: none Site: Radial L - Central Line Placement Right IJ Consent obtained: written consent Time out performed: Yes Patient placed on monitor/pulse ox: Yes prep: mask, gown, gloves Central line prep: Chlorhexidine scrub, sterile drapes applied Ultrasound used for placement: Yes Technique: Seldinger Lumen Inserted: Introducer Post procedure: sutured in place, good blood return, all ports aspirated, flushed, capped, sterile dressing applied Patient tolerated procedure: well, no complications Complications: none Comments: introducer placed withou issues. [place] placed without arrythmia, wedge approx 60cm
[2017-12-31] MEDS ORDERED: Naloxone 0.4 MG/ML INJ IVP PRN (10:44)
[2017-12-31] MEDS ORDERED: Ondansetron 4 MG/2 ML VIAL IVP PRN (10:44)
[2017-12-31] MEDS ORDERED: Acetaminophen 325 MG TABLET PO PRN (10:44)
[2017-12-31] MEDS ORDERED: Potassium Chloride 40 MEQ/200 ML BAG IVPB PRN (10:44)
[2017-12-31] MEDS ORDERED: Insulin Regular, Human 100 UNIT/ML IV PRN (10:44)
[2017-12-31] MEDS ORDERED: *HR* FentaNYL (PF) 100 MCG/2 ML VIAL IVP PRN (10:44)
[2017-12-31] MEDS ORDERED: *HR* Dextrose 50 % in Water (Syg) 50 ML SYRINGE IVP PRN (10:44)
[2017-12-31] MEDS ORDERED: Calcium Chloride 1,000 MG in 0.9 % Sodium Chloride 100 ML IVPB PRN (10:44)
[2017-12-31] MEDS ORDERED: Acetaminophen 650 MG RECTAL SUPP RC PRN (10:44)
--- NOTE | 2017-12-31 11:01 | Operative Note ---
Date of procedure: 12/31/17 Pre-op diagnosis: CAD Post-op diagnosis: same Procedure: 1. CABG 1 (SUAREZ to LAD), off pump. Implants: None. Complications: None. Anesthesia: HEENAA Surgeon: Katharine Tobar Was there an preschool assistant present: No Membership Correspondent: Grant Capellan Estimated blood loss (cc): 500 Specimen: None. Condition: stable Disposition: ICU Procedure in Detail: INDICATIONS FOR OPERATION: The patient is a 77 year old type II diabetic, hypertensive lady with known CAD and hypercholesterolemia who was admitted to the [facility] for elective cardiac catheterization. The patient's cardiac history dates back to 2007 which time she underwent PCI with RCA stent placement. She states that she did well until recently, when she began experiencing shortness of breath and dyspnea on exertion. She lives in a bilevel house and has 2 climb stairs throughout the day. She states that at the top of each flight of stairs she will have shortness of breath and dyspnea exertion. In addition, the patient has lower back pain and has been scheduled for a lumbar laminectomy with fusion and posterior spinal instrumentation. Given her presenting symptoms, previous RCA stent placement, and cardiac risk profile she was recommended for cardiac workup prior to her spinal operation. A nuclear stress test revealed an LVEF 49% with cassandra-infarct ischemia involving the distal anterior wall and the distal anteroseptum. She was recommended for cardiac catheterization which was performed today. This study revealed severe 3 vessel CAD and an LVEF 40%. In particular, the patient has a 60% distal left main lesion, a 99% ostial/proximal LAD lesion, an 80% mid LAD lesion, an 80% ostial D1 lesion, a 40% proximal LCx lesion, a 30% mid LCx lesion, a completely occluded proximal RCA which fills distally via [id number] collaterals. She has been recommended for CABG. FINDINGS AT OPERATION: The aorta was of normal caliber; however, was heavily calcified in the mid to distal portion of the ascending thoracic aorta. Because of the calcified ascending thoracic aorta, the patient could not have proximal vein anastomoses performed and this limited the CABG to a single-vessel off-pump procedure. The coronary arteries measure approximately 1.5 mm in diameter and had moderate distal disease in the LAD. DESCRIPTION OF OPERATION: After obtaining informed operative consent from patient, she was taken to the operative tumor satisfactory general tracheal anesthetic was induced. Appropriate monitoring lines were placed, and the patient's chest, abdomen, and lower extremities were prepped and draped in a sterile fashion. A standard median sternotomy incision was made and the sternum divided. The pericardium was opened and reflected laterally. The mid and distal portions of the ascending thoracic aorta or to found to be heavily calcified and thus not suitable for cannulation or proximal anastomoses. The LAD was examined and found to be a 1.5 mm diameter vessel with moderate calcification. It was determined that this vessel would be suitable for an off-pump procedure. Although the left greater saphenous vein had been identified, side branches were not divided and the vessel was not removed from the thigh. The left lower extremity subcutaneous tissue and skin edges were reapproximated running Vicryl sutures. The SUAREZ was taken down from its bed and side branches divided between the clips. The sternum was and the pericardium reflected laterally. The patient received a full dose of heparin. The LAD was encircled with a vessel loop proximally and opened distally. The SUAREZ was then anastomosed in end-to- side fashion to the LAD using running 7-0 Prolene suture. The anastomosis found to be hemostatic and the mammary pedicle was tacked to the epicardium using interrupted 5-0 silk suture. Protamine was administered. Two right ventricular temporary epicardial pacing place, and 2 chest tubes were placed, one in the anterior mediastinum and one into the left pleural space. The pericardium was loosely approximated in the midline over the aorta and pulmonary artery. The lower portion of the right ventricle could not be covered with pericardium due to excessive tension. The sternum was reapproximated using doubled wires. The pectoralis major fascia, rectus abdominis fascia, subcutaneous tissue, and skin edges were reapproximated running Vicryl sutures. A negative pressure sterile dressing was applied to the sternotomy incision. The patient was transferred to the ICU in satisfactory postoperative condition. There were no intraoperative complications, and the instrument, needle, and sponge count were corrected and of operation. - Open Heart Detail SAKSHI (Internal Mammary Artery) Usage: Yes Cardiopulmonary Bypass Time (mins): 0 (Off-pump procedure) Aortic Cross Clamp Time (mins): 0 (Off-pump procedure) Intentional Hypothermia Temperature (C.): 37 (Off-pump procedure)
[2017-12-31 11:11] LABS: ABG Base Excess 0 mEq/L (-2 to 3); ABG HCO3 24 mEq/L (21-27); ABG Oxygen Saturation 100 % (95-98); ABG PCO2 35 mmHg (35-45); ABG PH 7.44 pH Units (7.32-7.45); ABG PO2 171 mmHg (85-104); ABG TCO2 25 mEq/L (20-26); Blood Gas Modality ASSIST CONTROL; Blood Gas PEEP 5 cm H2O; Blood Gas Respiration Rate 10; Blood Gas VT 600 cc
[2017-12-31 11:21] LABS: Basophils % 0.4 %; Eosinophils # 0.3 K/mcL (0.0-0.6); Eosinophils % 3.2 %; Hematocrit 29.9 % (35.3-44.9); Hemoglobin 10.1 g/dL (11.5-15.4); Immature Granulocytes % 0.9 % (0-4); Lymphocytes # 1.6 K/mcL (0.6-4.6); Mean Corpuscular HGB Conc 33.8 g/dL (31.6-35.5); Mean Corpuscular Hemoglobin 30.8 pg (28.0-33.3); Mean Corpuscular Volume 91.2 fL (83.0-100.0); Mean Platelet Volume 9.2 fL (9.4-12.4); Monocytes # 0.7 K/mcL (0.0-1.3); Monocytes % 6.6 %; Platelet Count 121 K/mcL (140-400); Red Blood Count 3.28 M/mcL (3.82-4.97); Red Cell Distribution Width 13.4 % (11.5-14.5); Segmented Neutrophils % 72.9 %
[2017-12-31 11:23] LABS: Neutrophils # 7.4 K/mcL (1.6-8.9)
[2017-12-31 11:25] LABS: INR 1.8
[2017-12-31 11:28] LABS: Activated Partial Thrombo Time 34.3 Seconds (26.0-36.0)
[2017-12-31 11:35] LABS: Prothrombin Time 19.9 Seconds (9.4-12.1)
[2017-12-31 11:36] LABS: BUN/Creatinine Ratio 18 (6-26); Blood Urea Nitrogen 13 mg/dL (8-23); Carbon Dioxide 23 mEq/L (23-29); Chloride 107 mEq/L (98-107); Glucose 64 mg/dL (70-105); Magnesium 1.7 mg/dL (1.6-2.6); Osmolality,Calculated 280 (280-300); Potassium 3.2 mEq/L (3.5-5.1); Sodium 136 mEq/L (136-145); eGFR For African Americans > 60 (> 60); eGFR For Non-African Americans > 60 (> 60)
[2017-12-31] MEDS: Pantoprazole 40 MG VIAL IVP SCH (12:06)
[2017-12-31] MEDS: Metoclopramide 10 MG/2 ML VIAL IVP SCH ×3 (12:06→23:31)
[2017-12-31] MEDS: 0.9 % Sodium Chloride w KCl 20 MEQ/1,000 ML MLS IVC SCH (12:06)
[2017-12-31] MEDS: CeFAZolin Pre 2,000 MG/100 ML 2,000 MG/100 ML BAG IVPB SCH ×2 (15:17→23:26)
[2017-12-31 15:24] LABS: ABG Base Excess 1 mEq/L (-2 to 3); ABG HCO3 25 mEq/L (21-27); ABG Oxygen Saturation 99 % (95-98); ABG PCO2 39 mmHg (35-45); ABG PH 7.42 pH Units (7.32-7.45); ABG PO2 113 mmHg (85-104); ABG TCO2 26 mEq/L (20-26); Blood Gas Modality VC; Blood Gas PEEP 5 cm H2O; Blood Gas Respiration Rate 10; Blood Gas VT 600 cc
[2017-12-31] MEDS: *HR* OxyCODONE/APAP 5/325 TABLET PO PRN (17:15)
[2017-12-31 17:36] LABS: Potassium 3.8 mEq/L (3.5-5.1)
[2017-12-31] MEDS: Dextrose 50 % in Water (Vial) 30 ML, Sodium Bicarbonate 20 MEQ, Lidocaine 1% 5 ML, Insu... TH SCH (19:32)
[2017-12-31] MEDS: Heparin 15,000 UNIT in 0.9 % Sodium Chloride 500 ML IV SCH (19:32)
[2017-12-31] MEDS: Norepinephrine 4 MG in D5% in Water 250 ML IVC SCH (19:34)
[2017-12-31] MEDS: Insulin Human Regular 100 UNIT in 0.9 % Sodium Chloride 100 ML IVC SCH (20:00)
[2017-12-31] MEDS: niCARdipine 40 MG/200 ML MLS IVC SCH ×2 (20:01→20:02)
[2017-12-31] MEDS: Nitroglycerin 25 MG/250 ML INFUS..BTL IVC SCH (20:01)
[2017-12-31] MEDS: Chlorhexidine Rinse 15 ML MOUTHWASH MM SCH (20:11)
[2017-12-31 20:15] LABS: ABG Base Excess 0 mEq/L (-2 to 3); ABG HCO3 24 mEq/L (21-27); ABG Oxygen Saturation 98 % (95-98); ABG PCO2 37 mmHg (35-45); ABG PH 7.43 pH Units (7.32-7.45); ABG PO2 93 mmHg (85-104); ABG TCO2 26 mEq/L (20-26); Blood Gas Modality ASSIST CONTROL; Blood Gas PEEP 5 cm H2O; Blood Gas Respiration Rate 10; Blood Gas VT 600 cc
--- NOTE | 2017-12-31 20:40 | Electrocardiograph Report ---
[address] [address] Test Date: 2017-12-31 Pat Name: Nia Chavez Department: 109 Room: [facility] Gender: F Blankbook Forwarder: LANDY : 1940 Requested By: Gurwinder Tobar Order Number: [id number] Reading MD: Denny Ramos Measurements Intervals [place] Rate: 54 P: 69 ID: [id number] QRS: -6 QRSD: 90 T: 107 QT: 488 QTc: 473 Interpretive Statements SINUS BRADYCARDIA WITH OCCASIONAL VENTRICULAR PREMATURE COMPLEXES PROLONGED QT INTERVAL Electronically Signed On 12-31-2017 20:38:51 EDT by Denny Ramos
[2017-12-31 20:58] LABS: ABG Base Excess 0 mEq/L (-2 to 3); ABG HCO3 25 mEq/L (21-27); ABG Oxygen Saturation 97 % (95-98); ABG PCO2 41 mmHg (35-45); ABG PH 7.39 pH Units (7.32-7.45); ABG PO2 88 mmHg (85-104); ABG TCO2 26 mEq/L (20-26); Blood Gas Modality CPAP/PS; Blood Gas PEEP 5 cm H2O; Blood Gas Pressure Support 5 cm H2O
[2017-12-31 21:53] LABS: ABG Base Excess 0 mEq/L (-2 to 3); ABG HCO3 25 mEq/L (21-27); ABG Oxygen Saturation 96 % (95-98); ABG PCO2 42 mmHg (35-45); ABG PH 7.38 pH Units (7.32-7.45); ABG PO2 86 mmHg (85-104); ABG TCO2 26 mEq/L (20-26)
[2018-01-01] MEDS: Dextrose 50 % in Water (Vial) 30 ML, Sodium Bicarbonate 20 MEQ, Lidocaine 1% 5 ML, Insu... TH SCH (00:11)
[2018-01-01] MEDS: Heparin 15,000 UNIT in 0.9 % Sodium Chloride 500 ML IV SCH (00:11)
[2018-01-01 03:27] LABS: Basophils % 0.2 %; Eosinophils % 0.4 %; Hematocrit 30.6 % (35.3-44.9); Hemoglobin 10.6 g/dL (11.5-15.4); Immature Granulocytes % 0.7 % (0-4); Lymphocytes # 0.7 K/mcL (0.6-4.6); Mean Corpuscular HGB Conc 34.6 g/dL (31.6-35.5); Mean Corpuscular Hemoglobin 32.4 pg (28.0-33.3); Mean Corpuscular Volume 93.6 fL (83.0-100.0); Mean Platelet Volume 9.5 fL (9.4-12.4); Monocytes # 0.8 K/mcL (0.0-1.3); Monocytes % 8.9 %; Neutrophils # 6.9 K/mcL (1.6-8.9); Platelet Count 154 K/mcL (140-400); Red Blood Count 3.27 M/mcL (3.82-4.97); Red Cell Distribution Width 13.6 % (11.5-14.5); Segmented Neutrophils % 81.8 %
[2018-01-01 03:32] LABS: INR 1.5
[2018-01-01 03:35] LABS: Activated Partial Thrombo Time 28.8 Seconds (26.0-36.0)
[2018-01-01 03:39] LABS: BUN/Creatinine Ratio 20 (6-26); Blood Urea Nitrogen 16 mg/dL (8-23); Calcium 8.2 mg/dL (8.6-10.3); Carbon Dioxide 26 mEq/L (23-29); Chloride 105 mEq/L (98-107); Glucose 126 mg/dL (70-105); Magnesium 2.1 mg/dL (1.6-2.6); Osmolality,Calculated 285 (280-300); Potassium 4.2 mEq/L (3.5-5.1); Sodium 136 mEq/L (136-145); eGFR For African Americans > 60 (> 60); eGFR For Non-African Americans > 60 (> 60)
[2018-01-01] MEDS: Metoclopramide 10 MG/2 ML VIAL IVP SCH ×4 (05:06→23:01)
[2018-01-01] MEDS: *HR* OxyCODONE/APAP 5/325 TABLET PO PRN ×4 (05:06→17:21)
--- NOTE | 2018-01-01 06:28 | Cardiothoracic Progress Note ---
Date of Encounter: 01/01/18 Time of Encounter: 06:25 - Assessment and plan (1) CAD (coronary artery disease) Current Visit: No Status: Chronic The patient is recovering well from her CABG 1. Although she had triple- vessel disease and could have had 3-4 bypass grafts, her ascending aorta was severely calcified and could not be cannulated safely. She had a 99% proximal LAD lesion and underwent a SUAREZ to LAD bypass graft. She is extubated and breathing comfortably. The arterial line, Corral catheter, and [place] catheter be removed today. She will be monitored in the ICU today. The assessment and plan as outlined above was discussed with the patient and/or family members who expressed understanding and agreement. All questions were answered. Qualifiers: Coronary Disease-Associated Artery/Lesion type: [place] artery [place] vs. transplanted heart: [place] heart Associated angina: with other forms of angina Qualified Code(s): I25.118 - Atherosclerotic heart disease of [place] coronary artery with other forms of angina pectoris - Subjective Procedure(s) Performed: POD#1 S/P CABG1 Interval history: The patient remained hemodynamically stable overnight. She is extubated and breathing comfortably. She has no complaints. Vital Signs, Last 4 Hours Temp Pulse Resp BP Pulse Ox 01/01/18 05:51 95 12 139/52 96 01/01/18 05:00 95 12 154/70 96 01/01/18 04:00 88 12 144/62 96 01/01/18 03:37 16 137/61 96 01/01/18 03:22 86 01/01/18 03:00 99.2 F 85 16 130/55 96 Oxgyen Flow Rate Oxygen Flow Rate (LPM) 3 Clinical Data, last 8 Hours Output, Chest Tube Drainage 5 Amount [Mediastinal #1] Output, Chest Tube Drainage 0 Amount [Mediastinal #1] Output, Chest Tube Drainage 10 Amount [Mediastinal #1] Output, Chest Tube Drainage 0 Amount [Mediastinal #1] Output, Chest Tube Drainage 0 Amount [Mediastinal #1] Output, Chest Tube Drainage 15 Amount [Mediastinal #1] Output, Chest Tube Drainage 20 Amount [Mediastinal #1] Output, Chest Tube Drainage 0 Amount [Mediastinal #1] Output, Chest Tube Drainage 25 Amount [Mediastinal #2] Output, Chest Tube Drainage 0 Amount [Mediastinal #2] Output, Chest Tube Drainage 20 Amount [Mediastinal #2] Output, Chest Tube Drainage 0 Amount [Mediastinal #2] Output, Chest Tube Drainage 5 Amount [Mediastinal #2] Output, Chest Tube Drainage 5 Amount [Mediastinal #2] Output, Chest Tube Drainage 5 Amount [Mediastinal #2] Output, Chest Tube Drainage 0 Amount [Mediastinal #2] Weight 12/30/17 12/31/17 01/01/18 23:59 23:59 23:59 Weight 81.193 kg - Physical Examination General: Conversant, No Apparent Distress Neck: No JVD, Normal carotid pulses Cardiac: Reg Rate and Rhythm, Normal S1 and S2, No Murmur Incision: No signs of infection, Dry/intact dressing Sternum: Stable Chest tubes: Minimal drainage, Other (No air leak) Lungs: Normal Breath Sounds, No Wheeze, Rales, Rhonchi Neuro: Alert and responsive, No focal deficits noted Vascular: Normal capillary refill Extremities: No Clubbing, No Cyanosis, No Edema - Labs 01/01/18 03:00 01/01/18 03:00 Lab Results, Last 24 hours 12/31/17 12/31/17 12/31/17 11:08 11:08 11:08 WBC 10.2 Hgb 10.1 L Hct 29.9 L Plt Count 121 L INR 1.8 APTT 34.3 Sodium 136 Potassium 3.2 L Chloride 107 Carbon Dioxide 23 BUN 13 Creatinine 0.73 Glucose 64 L Calcium 9.0 Magnesium 1.7 12/31/17 01/01/18 01/01/18 12:05 03:00 03:00 WBC 8.4 Hgb 10.6 L Hct 30.6 L Plt Count 154 INR 1.5 APTT 28.8 Sodium Potassium 3.8 Chloride Carbon Dioxide BUN Creatinine Glucose Calcium Magnesium 2.0 01/01/18 03:00 WBC Hgb Hct Plt Count INR APTT Sodium 136 Potassium 4.2 Chloride 105 Carbon Dioxide 26 BUN 16 Creatinine 0.80 Glucose 126 H Calcium 8.2 L Magnesium 2.1 - VTE Reasons for not Prescribing Prophylaxis: Medical contraindication Documentation of Mechanical Device: Graduated compression elastic hosiery Consult Discharge Plan - Plan Referrals: Tamela Smith, PARAKEET RAISER [Primary Care Provider] -
[2018-01-01] MEDS ORDERED: *HR* Dextrose 50 % in Water (Syg) 50 ML SYRINGE IVP PRN (06:31)
[2018-01-01] MEDS ORDERED: Dextrose Gel 15 GM/37.5 ML TUBE PO PRN ×2 (06:31)
[2018-01-01] MEDS ORDERED: D5% in Water 1,000 ML IVC PRN (06:31)
[2018-01-01] MEDS: Aspirin Enteric Coated 81 MG Tablet PO SCH (08:52)
[2018-01-01] MEDS: Chlorhexidine Rinse 15 ML MOUTHWASH MM SCH ×2 (08:52→20:31)
[2018-01-01] MEDS: Insulin LISPRO 300 UNITS/3 ML VIAL SQ SCH ×4 (08:53→20:52)
[2018-01-01] MEDS: Furosemide 20 MG/2 ML VIAL IVP SCH ×2 (08:53→20:32)
[2018-01-01] MEDS: Pantoprazole 40 MG VIAL IVP SCH (08:54)
[2018-01-01] MEDS: *HR* Heparin 5,000 UNIT/ML VIAL SQ SCH ×2 (10:48→17:21)
--- NOTE | 2018-01-01 16:08 | Electrocardiograph Report ---
[address] [place] [address] Test Date: 2017-12-31 Pat Name: Nia Chavez Department: 109 Room: [facility] Gender: F Respiratory Coordinator: LANDY : 1940 Requested By: Gurwinder Tobar Order Number: [id number] Reading MD: Meenu Horvath Measurements Intervals [place] Rate: 53 P: 70 MI: 166 QRS: -1 QRSD: 98 T: 92 QT: 486 QTc: 470 Interpretive Statements SINUS BRADYCARDIA NONSPECIFIC ST-WAVE ABNORMALITY Electronically Signed On 01-01-2018 16:06:32 EDT by Meenu Horvath
[2018-01-01] MEDS: niCARdipine 40 MG/200 ML MLS IVC SCH ×2 (19:00→20:53)
[2018-01-01] MEDS: Norepinephrine 4 MG in D5% in Water 250 ML IVC SCH (19:00)
[2018-01-01] MEDS: Nitroglycerin 25 MG/250 ML INFUS..BTL IVC SCH ×2 (19:50→20:54)
[2018-01-02 03:15] LABS: Basophils % 0.3 %; Eosinophils # 0.1 K/mcL (0.0-0.6); Eosinophils % 1.7 %; Hematocrit 28.7 % (35.3-44.9); Hemoglobin 9.6 g/dL (11.5-15.4); Immature Granulocytes % 0.4 % (0-4); Lymphocytes # 0.8 K/mcL (0.6-4.6); Lymphocytes % 9.8 %; Mean Corpuscular HGB Conc 33.4 g/dL (31.6-35.5); Mean Corpuscular Hemoglobin 31.2 pg (28.0-33.3); Mean Corpuscular Volume 93.2 fL (83.0-100.0); Mean Platelet Volume 9.5 fL (9.4-12.4); Monocytes # 0.8 K/mcL (0.0-1.3); Monocytes % 10.4 %; Neutrophils # 6.1 K/mcL (1.6-8.9); Platelet Count 126 K/mcL (140-400); Red Blood Count 3.08 M/mcL (3.82-4.97); Red Cell Distribution Width 13.8 % (11.5-14.5); Segmented Neutrophils % 77.4 %
[2018-01-02 03:35] LABS: BUN/Creatinine Ratio 21 (6-26); Blood Urea Nitrogen 15 mg/dL (8-23); Calcium 8.1 mg/dL (8.6-10.3); Carbon Dioxide 25 mEq/L (23-29); Chloride 99 mEq/L (98-107); Glucose 233 mg/dL (70-105); Osmolality,Calculated 282 (280-300); Potassium 3.4 mEq/L (3.5-5.1); Sodium 132 mEq/L (136-145); eGFR For African Americans > 60 (> 60); eGFR For Non-African Americans > 60 (> 60)
[2018-01-02] MEDS: Metoclopramide 10 MG/2 ML VIAL IVP SCH ×3 (05:04→17:58)
[2018-01-02] MEDS: *HR* Heparin 5,000 UNIT/ML VIAL SQ SCH ×2 (05:04→17:59)
[2018-01-02] MEDS: *HR* OxyCODONE/APAP 5/325 TABLET PO PRN ×3 (05:41→11:53)
[2018-01-02] MEDS: Furosemide 20 MG/2 ML VIAL IVP SCH ×2 (07:57→21:11)
[2018-01-02] MEDS: Aspirin Enteric Coated 81 MG Tablet PO SCH (07:58)
[2018-01-02] MEDS: Chlorhexidine Rinse 15 ML MOUTHWASH MM SCH ×2 (07:58→21:12)
[2018-01-02] MEDS: Pantoprazole 40 MG VIAL IVP SCH (07:58)
[2018-01-02] MEDS: Insulin LISPRO 300 UNITS/3 ML VIAL SQ SCH ×4 (07:59→21:11)
--- NOTE | 2018-01-02 09:05 | Cardiothoracic Progress Note ---
Date of Encounter: 01/02/18 Time of Encounter: 09:03 - Assessment and plan (1) CAD (coronary artery disease) Current Visit: No Status: Chronic The patient is recovering well from her CABG 1. She is breathing comfortably, but remained somewhat confused this morning. The chest tubes were removed. She will be monitored in the ICU today. The assessment and plan as outlined above was discussed with the patient and/or family members who expressed understanding and agreement. All questions were answered. Qualifiers: Coronary Disease-Associated Artery/Lesion type: [place] artery [place] vs. transplanted heart: [place] heart Associated angina: with other forms of angina Qualified Code(s): I25.118 - Atherosclerotic heart disease of [place] coronary artery with other forms of angina pectoris - Subjective Procedure(s) Performed: POD#2 S/P CABG1 Interval history: The patient remained hemodynamically stable overnight. She is breathing comfortably. She has no complaints, but remained somewhat confused this morning. Vital Signs, Last 4 Hours Temp Pulse Resp BP Pulse Ox 01/02/18 08:57 98.6 F 01/02/18 08:32 93 12 138/66 90 01/02/18 07:49 92 12 138/66 92 01/02/18 07:43 18 92 01/02/18 06:11 92 19 95 01/02/18 05:28 98.4 F Oxgyen Flow Rate Oxygen Flow Rate (LPM) 1 Clinical Data, last 8 Hours Output, Chest Tube Drainage 0 Amount [Mediastinal #1] Output, Chest Tube Drainage 4 Amount [Mediastinal #1] Output, Chest Tube Drainage 15 Amount [Mediastinal #2] Output, Chest Tube Drainage 30 Amount [Mediastinal #2] Weight 12/31/17 01/01/18 01/02/18 23:59 23:59 23:59 Weight 81.193 kg 82.3 kg - Physical Examination General: No Apparent Distress, Other (Flat affect with some confusion) Neck: No JVD, Normal carotid pulses Cardiac: Reg Rate and Rhythm, Normal S1 and S2, No Murmur Incision: No signs of infection, Dry/intact dressing Sternum: Stable Chest tubes: Minimal drainage, Other (No air leak) Pacing Wires: In place Lungs: Normal Breath Sounds, No Wheeze, Rales, Rhonchi Neuro: Alert and responsive, No focal deficits noted Vascular: Normal capillary refill Extremities: No Clubbing, No Cyanosis, No Edema - Labs 01/02/18 03:05 01/02/18 03:05 Lab Results, Last 24 hours 01/02/18 01/02/18 03:05 03:05 WBC 7.8 Hgb 9.6 L Hct 28.7 L Plt Count 126 L Sodium 132 L Potassium 3.4 L Chloride 99 Carbon Dioxide 25 BUN 15 Creatinine 0.70 Glucose 233 H Calcium 8.1 L - VTE Reasons for not Prescribing Prophylaxis: Medical contraindication Documentation of Mechanical Device: Graduated compression elastic hosiery Consult Discharge Plan - Plan Referrals: Tamela Smith, CEMENT DESPATCH OPERATOR [Primary Care Provider] -
[2018-01-02] MEDS ORDERED: *HR* LORazepam 0.5 MG TABLET PO PRN (09:11)
[2018-01-02] MEDS: niCARdipine 40 MG/200 ML MLS IVC SCH ×2 (11:24→19:44)
[2018-01-02] MEDS: Norepinephrine 4 MG in D5% in Water 250 ML IVC SCH (11:25)
[2018-01-02] MEDS: Venlafaxine XR (24 HR) 37.5 MG CAP.ER.24H PO SCH (11:53)
[2018-01-02] MEDS: Insulin DETEMIR 100 UNIT/ML X5UNITS SQ SCH (12:01)
[2018-01-02] MEDS: Nitroglycerin 25 MG/250 ML INFUS..BTL IVC SCH (15:23)
[2018-01-03] MEDS: Nitroglycerin 25 MG/250 ML INFUS..BTL IVC SCH ×3 (00:36→18:46)
[2018-01-03] MEDS: Metoclopramide 10 MG/2 ML VIAL IVP SCH ×2 (00:39→04:44)
[2018-01-03] MEDS: niCARdipine 40 MG/200 ML MLS IVC SCH ×3 (03:38→17:02)
[2018-01-03] MEDS: *HR* Heparin 5,000 UNIT/ML VIAL SQ SCH ×2 (04:44→18:29)
[2018-01-03] MEDS: *HR* OxyCODONE/APAP 5/325 TABLET PO PRN ×3 (04:44→22:11)
[2018-01-03] MEDS: Venlafaxine XR (24 HR) 37.5 MG CAP.ER.24H PO SCH ×2 (07:57→10:30)
[2018-01-03] MEDS: Aspirin Enteric Coated 81 MG Tablet PO SCH ×2 (07:57→10:30)
[2018-01-03] MEDS: Insulin LISPRO 300 UNITS/3 ML VIAL SQ SCH ×4 (07:58→20:53)
[2018-01-03] MEDS: Chlorhexidine Rinse 15 ML MOUTHWASH MM SCH ×3 (07:58→20:52)
[2018-01-03] MEDS: Furosemide 20 MG/2 ML VIAL IVP SCH (07:58)
[2018-01-03] MEDS: Pantoprazole 40 MG VIAL IVP SCH ×2 (07:58→10:31)
[2018-01-03] MEDS: Insulin DETEMIR 100 UNIT/ML X5UNITS SQ SCH ×2 (08:00→10:31)
--- NOTE | 2018-01-03 08:21 | Cardiothoracic Progress Note ---
Date of Encounter: 01/03/18 Time of Encounter: 08:19 - Assessment and plan (1) CAD (coronary artery disease) Current Visit: No Status: Chronic The patient is recovering well from her CABG 1. She is breathing comfortably, but remained somewhat confused this morning. The Corral catheter will be removed. She will be transferred to the stepdown unit when a bed is available The assessment and plan as outlined above was discussed with the patient and/or family members who expressed understanding and agreement. All questions were answered. Qualifiers: Coronary Disease-Associated Artery/Lesion type: [place] artery [place] vs. transplanted heart: [place] heart Associated angina: with other forms of angina Qualified Code(s): I25.118 - Atherosclerotic heart disease of [place] coronary artery with other forms of angina pectoris - Subjective Procedure(s) Performed: POD#3 S/P CABG1 Interval history: The patient remained hemodynamically stable overnight. She is breathing comfortably. She has no complaints. Vital Signs, Last 4 Hours Temp Pulse Resp BP Pulse Ox 01/03/18 07:50 98.6 F 01/03/18 07:36 16 94 01/03/18 07:25 87 01/03/18 07:00 87 16 122/64 93 01/03/18 06:00 85 16 117/55 95 01/03/18 05:00 92 16 116/63 96 01/03/18 04:20 97 Oxgyen Flow Rate Oxygen Flow Rate (LPM) 2 Weight 01/01/18 01/02/18 01/03/18 23:59 23:59 23:59 Weight 82.3 kg 79.5 kg - Physical Examination General: Conversant, No Apparent Distress Neck: No JVD, Normal carotid pulses Cardiac: Reg Rate and Rhythm, Normal S1 and S2, No Murmur Incision: No signs of infection, Dry/intact dressing Sternum: Stable Pacing Wires: In place Lungs: Normal Breath Sounds, No Wheeze, Rales, Rhonchi Neuro: Alert and responsive, No focal deficits noted Vascular: Normal capillary refill Extremities: No Clubbing, No Cyanosis, No Edema - Labs 01/02/18 03:05 01/02/18 03:05 - VTE Reasons for not Prescribing Prophylaxis: Medical contraindication Documentation of Mechanical Device: Graduated compression elastic hosiery Consult Discharge Plan - Plan Referrals: Tamela Smith CNP [Primary Care Provider] -
[2018-01-03] MEDS ORDERED: Insulin Regular, Human 100 UNIT/ML IV PRN (08:33)
[2018-01-03] MEDS ORDERED: Potassium Chloride 40 MEQ/200 ML BAG IVPB PRN (08:33)
[2018-01-03] MEDS ORDERED: *HR* LORazepam 0.5 MG TABLET PO PRN (08:33)
[2018-01-03] MEDS ORDERED: D5% in Water 1,000 ML IVC PRN (08:33)
[2018-01-03] MEDS ORDERED: Naloxone 0.4 MG/ML INJ IVP PRN (08:33)
[2018-01-03] MEDS ORDERED: *HR* Dextrose 50 % in Water (Syg) 50 ML SYRINGE IVP PRN (08:33)
[2018-01-03] MEDS ORDERED: Acetaminophen 325 MG TABLET PO PRN (08:33)
[2018-01-03] MEDS ORDERED: Ondansetron 4 MG/2 ML VIAL IVP PRN (08:33)
[2018-01-03] MEDS ORDERED: Dextrose Gel 15 GM/37.5 ML TUBE PO PRN ×2 (08:33)
[2018-01-03] MEDS ORDERED: Furosemide 20 MG/2 ML VIAL IVP SCH (09:00)
[2018-01-03] MEDS: Norepinephrine 4 MG in D5% in Water 250 ML IVC SCH (10:29)
[2018-01-03] MEDS: amLODIPine 5 MG TABLET PO SCH (11:54)
[2018-01-03] MEDS: Gabapentin 100 MG CAPSULE PO SCH ×2 (11:54→20:52)
[2018-01-03] MEDS ORDERED: Metoclopramide 10 MG/2 ML VIAL IVP SCH (12:00)
[2018-01-03] MEDS: Insulin Human Regular 100 UNIT in 0.9 % Sodium Chloride 100 ML IVC SCH (12:46)
[2018-01-03] MEDS: 0.9 % Sodium Chloride w KCl 20 MEQ/1,000 ML MLS IVC SCH (12:46)
[2018-01-03] MEDS ORDERED: DOXEPIN HCL 150 MG PO SCH (21:00)
[2018-01-04] MEDS: Nitroglycerin 25 MG/250 ML INFUS..BTL IVC SCH ×2 (03:12→12:18)
[2018-01-04] MEDS: niCARdipine 40 MG/200 ML MLS IVC SCH ×3 (03:12→12:18)
[2018-01-04] MEDS: *HR* Heparin 5,000 UNIT/ML VIAL SQ SCH ×2 (05:13→17:25)
--- NOTE | 2018-01-04 07:25 | Cardiothoracic Progress Note ---
Date of Encounter: 01/04/18 Time of Encounter: 07:24 - Assessment and plan (1) CAD (coronary artery disease) Current Visit: No Status: Chronic The patient is recovering well from her CABG 1. She is breathing comfortably, but remained somewhat confused this morning. The Corral catheter will be removed. She will be transferred to the stepdown unit when a bed is available The assessment and plan as outlined above was discussed with the patient and/or family members who expressed understanding and agreement. All questions were answered. Qualifiers: Coronary Disease-Associated Artery/Lesion type: [place] artery [place] vs. transplanted heart: [place] heart Associated angina: with other forms of angina Qualified Code(s): I25.118 - Atherosclerotic heart disease of [place] coronary artery with other forms of angina pectoris - Subjective Procedure(s) Performed: POD#4 S/P CABG1 Interval history: The patient remained hemodynamically stable overnight. She is breathing comfortably. She has no complaints. Vital Signs, Last 4 Hours Resp Pulse Ox 01/04/18 03:40 14 96 Oxgyen Flow Rate Oxygen Flow Rate (LPM) 2 Weight 01/02/18 01/03/18 01/04/18 23:59 23:59 23:59 Weight 79.5 kg 80 kg - Physical Examination General: Conversant, No Apparent Distress Neck: No JVD, Normal carotid pulses Cardiac: Reg Rate and Rhythm, Normal S1 and S2, No Murmur Incision: No signs of infection, Dry/intact dressing Sternum: Stable Lungs: Normal Breath Sounds, No Wheeze, Rales, Rhonchi Neuro: Alert and responsive, No focal deficits noted Vascular: Normal capillary refill Musculoskeletal: No Chest Wall Tenderness Extremities: No Clubbing, No Cyanosis, No Edema - Labs 01/02/18 03:05 01/02/18 03:05 - VTE Reasons for not Prescribing Prophylaxis: Medical contraindication Documentation of Mechanical Device: Graduated compression elastic hosiery Consult Discharge Plan - Plan Referrals: Tamela Smith MARKETING EXECUTIVE [Primary Care Provider] -
[2018-01-04] MEDS: Norepinephrine 4 MG in D5% in Water 250 ML IVC SCH (08:45)
[2018-01-04] MEDS: amLODIPine 5 MG TABLET PO SCH (08:51)
[2018-01-04] MEDS: Chlorhexidine Rinse 15 ML MOUTHWASH MM SCH ×2 (08:51→21:05)
[2018-01-04] MEDS: Venlafaxine XR (24 HR) 37.5 MG CAP.ER.24H PO SCH (08:51)
[2018-01-04] MEDS: Pantoprazole 40 MG VIAL IVP SCH (08:51)
[2018-01-04] MEDS: Aspirin Enteric Coated 81 MG Tablet PO SCH (08:52)
[2018-01-04] MEDS: Insulin DETEMIR 100 UNIT/ML X5UNITS SQ SCH (08:52)
[2018-01-04] MEDS: Gabapentin 100 MG CAPSULE PO SCH ×2 (08:52→21:03)
[2018-01-04] MEDS: Insulin LISPRO 300 UNITS/3 ML VIAL SQ SCH ×4 (08:53→21:05)
[2018-01-04] MEDS: *HR* OxyCODONE/APAP 5/325 TABLET PO PRN ×2 (14:01→21:03)
[2018-01-05] MEDS: *HR* Heparin 5,000 UNIT/ML VIAL SQ SCH ×2 (05:59→16:39)
--- NOTE | 2018-01-05 07:45 | Cardiothoracic Progress Note ---
Date of Encounter: 01/05/18 Time of Encounter: 07:44 - Assessment and plan (1) CAD (coronary artery disease) Current Visit: No Status: Chronic The patient is recovering well from her CABG 1. She is breathing comfortably, but remained somewhat confused this morning. The Corral catheter will be removed. She will be transferred to the stepdown unit when a bed is available. She will be discharged to an inpatient rehabilitation unit tomorrow as a bridge to home. The assessment and plan as outlined above was discussed with the patient and/or family members who expressed understanding and agreement. All questions were answered. Qualifiers: Coronary Disease-Associated Artery/Lesion type: [place] artery [place] vs. transplanted heart: [place] heart Associated angina: with other forms of angina Qualified Code(s): I25.118 - Atherosclerotic heart disease of [place] coronary artery with other forms of angina pectoris - Subjective Procedure(s) Performed: POD#5 S/P CABG1 Interval history: The patient remained hemodynamically stable overnight. She is breathing comfortably. She has no complaints. Vital Signs, Last 4 Hours Temp Pulse Resp BP Pulse Ox 01/05/18 07:35 98.1 F 95 18 133/72 94 01/05/18 04:10 18 93 Oxgyen Flow Rate Oxygen Flow Rate (LPM) 2 Weight 01/03/18 01/04/18 01/05/18 23:59 23:59 23:59 Weight 79.5 kg 80.9 kg 81.4 kg - Physical Examination General: Conversant, No Apparent Distress Neck: No JVD, Normal carotid pulses Cardiac: Reg Rate and Rhythm, Normal S1 and S2, No Murmur Incision: No signs of infection, Dry/intact dressing Sternum: Stable Pacing Wires: In place Lungs: Normal Breath Sounds, No Wheeze, Rales, Rhonchi Neuro: Alert and responsive, No focal deficits noted Vascular: Normal capillary refill Skin: No rashes noted on visualized skin Extremities: No Clubbing, No Cyanosis, No Edema - Labs 01/02/18 03:05 01/02/18 03:05 - VTE Reasons for not Prescribing Prophylaxis: Medical contraindication Documentation of Mechanical Device: Graduated compression elastic hosiery Consult Discharge Plan - Plan Referrals: Tamela Smith RECORD MAKER [Primary Care Provider] -
[2018-01-05] MEDS ORDERED: Bisacodyl 10 MG RECTAL SUPPOSITORY RC PRN (07:48)
[2018-01-05] MEDS: Insulin DETEMIR 100 UNIT/ML X5UNITS SQ SCH (08:08)
[2018-01-05] MEDS: Insulin LISPRO 300 UNITS/3 ML VIAL SQ SCH ×4 (08:08→21:11)
[2018-01-05] MEDS: Gabapentin 100 MG CAPSULE PO SCH ×2 (08:08→20:55)
[2018-01-05] MEDS: Chlorhexidine Rinse 15 ML MOUTHWASH MM SCH ×2 (08:08→21:10)
[2018-01-05] MEDS: Pantoprazole 40 MG VIAL IVP SCH (08:08)
[2018-01-05] MEDS: amLODIPine 5 MG TABLET PO SCH (08:08)
[2018-01-05] MEDS: Norepinephrine 4 MG in D5% in Water 250 ML IVC SCH (08:09)
[2018-01-05] MEDS: Venlafaxine XR (24 HR) 37.5 MG CAP.ER.24H PO SCH (08:09)
[2018-01-05] MEDS: Aspirin Enteric Coated 81 MG Tablet PO SCH (08:21)
[2018-01-05] MEDS: *HR* OxyCODONE/APAP 5/325 TABLET PO PRN ×2 (11:24→20:55)
[2018-01-06] MEDS: *HR* Heparin 5,000 UNIT/ML VIAL SQ SCH ×2 (06:00→17:06)
[2018-01-06] MEDS: *HR* OxyCODONE/APAP 5/325 TABLET PO PRN ×3 (06:07→17:03)
[2018-01-06] MEDS: Aspirin Enteric Coated 81 MG Tablet PO SCH (08:19)
[2018-01-06] MEDS: amLODIPine 5 MG TABLET PO SCH (08:19)
[2018-01-06] MEDS: Venlafaxine XR (24 HR) 37.5 MG CAP.ER.24H PO SCH (08:19)
[2018-01-06] MEDS: Chlorhexidine Rinse 15 ML MOUTHWASH MM SCH (08:20)
[2018-01-06] MEDS: Pantoprazole 40 MG VIAL IVP SCH (08:20)
[2018-01-06] MEDS: Gabapentin 100 MG CAPSULE PO SCH (08:20)
[2018-01-06] MEDS: Norepinephrine 4 MG in D5% in Water 250 ML IVC SCH (08:21)
[2018-01-06] MEDS: Insulin LISPRO 300 UNITS/3 ML VIAL SQ SCH ×3 (08:23→17:04)
[2018-01-06] MEDS: Insulin DETEMIR 100 UNIT/ML X5UNITS SQ SCH (09:55)
--- NOTE | 2018-01-06 13:07 | Cardiothoracic Progress Note ---
Date of Encounter: 01/06/18 Time of Encounter: 13:05 - Assessment and plan (1) Severe sepsis with acute organ dysfunction Current Visit: No Status: Acute The assessment and plan as outlined above was discussed with the patient and/or family members who expressed understanding and agreement. All questions were answered. Hopefully, the patient can be discharged to a rehabilitation facility soon. Her pacing wires were removed. - Subjective Interval history: The patient has no complaints. Vital Signs, Last 4 Hours Temp Pulse Resp BP Pulse Ox 01/06/18 11:58 98.0 F 86 18 144/80 94 01/06/18 11:12 16 97 Oxgyen Flow Rate Oxygen Flow Rate (LPM) 2 Weight 01/04/18 01/05/18 01/06/18 23:59 23:59 23:59 Weight 80.9 kg 81.4 kg 78.4 kg Lungs are clear to percussion and auscultation. Heart is in a normal sinus rhythm. All incisions are healing well without signs of infection and the sternum is stable. - Labs 01/02/18 03:05 01/02/18 03:05 - VTE Reasons for not Prescribing Prophylaxis: Medical contraindication Documentation of Mechanical Device: Graduated compression elastic hosiery Consult Discharge Plan - Plan Referrals: Denny Ramos MD [Partnered Physician] - (SENT WEB REQUEST ON 01-05-18 @0987) Katharine Tobar MD [Partnered Physician] - (SENT WEB REQUEST ON 01-05-18 @ [id number]) Barron Baum [Partnered Physician] - 01/13/18 10:00 am
--- NOTE | 2018-01-06 15:03 | Discharge Summary ---
Orders not resulted at time of discharge: Pending orders 12/31/17 Red Blood Cells [BBK] Routine Date of Encounter: 01/06/18 Time of Encounter: 14:54 - Discharge Diagnosis (1) Severe sepsis with acute organ dysfunction Priority: Primary Status: Acute (2) Postoperative pain Priority: Secondary Status: Acute - Hospital Course Hospital course: Ms. Chavez is a 77 year old female - Time Spent with Patient Total time spent providing and/or coordinating discharge services: - Discharge Medications Home Medications: Amlodipine Besylate 2.5 mg PO DAILY 12/20/17 [History] Aspirin [Adult Aspirin Regimen] 81 mg PO DAILY 12/20/17 [History] Carvedilol [Coreg] 6.25 mg PO BID 12/20/17 [History] Clopidogrel [Plavix] 75 mg PO DAILY 12/20/17 [History] Doxepin HCl 150 mg PO HS 12/20/17 [History] Gabapentin [Neurontin] 100 - 200 mg PO BID 12/20/17 [History] HYDROcodone/Acet 7.5/325 mg [[place] 7.5-325 mg] 1 tab PO TID PRN 12/20/17 [ History] Insulin ASPART [Novolog Flexpen] 5 - 24 unit SQ TIDWM 12/20/17 [History] Insulin Glargine,Hum.rec.anlog [Basaglar Kwikpen U-100] 15 unit SQ HS 12/20/17 [ History] LORazepam [Ativan] 0.5 - 1 mg PO TID PRN 12/20/17 [History] Levothyroxine Sodium 100 mcg PO DAILY 12/20/17 [History] Multivitamin [One Daily Essential] 1 tab PO DAILY 12/20/17 [History] Sennosides [Senokot] 8.6 mg PO DAILY PRN 12/20/17 [History] Simvastatin [Zocor] 20 mg PO HS 12/20/17 [History] Venlafaxine XR (24 HR) [Effexor Xr] 37.5 mg PO DAILY 12/20/17 [History] Amoxicillin [Amoxil] 500 mg PO TID 6 Days #18 capsule 12/23/17 [Rx] Allergies/Adverse Reactions: 3 Allergy/AdvReac Type Severity Reaction Status Date / Time shellfish derived AdvReac Vomiting Verified 12/31/17 07:16 Date of admission: 12/31/17 10:45 Primary care physician: Tamela Smith CNP Consults: 12/31/17 10:44 Consult to Cardiac Rehabilitation-Phase1 [CONS] Routine Comment: Reason for Consult: Post open heart Call Completed: Yes 01/06/18 08:08 Consult to Physical Therapy [CONS] Stat Comment: Evaluate, develop and implement POC Reason for Consult: discharge planning Does patient have active BEDREST order?: No Is patient medically & hemodynamically stable?: Yes 01/06/18 08:09 Consult to Occupational Therapy [CONS] Stat Comment: Evaluate, develop and implement POC Reason for Consult: discharge planning Does patient have active BEDREST order?: No Is patient medically & hemodynamically stable?: Yes 01/06/18 08:10 Consult to International Marketing Specialist [CONS] Routine Reason for SW Consult: discharge planning Procedure(s) Performed: 12/31/2017. Coronary artery bypass grafting 1 taking the left internal mammary artery to the LAD done off the pump. Discharging clinician: Jabari Rebolledo Anticipated date of discharge: 01/06/18 Physical Examination Vital Signs, Last 4 Hours Temp Pulse Resp BP Pulse Ox 01/06/18 11:58 98.0 F 86 18 144/80 94 01/06/18 11:12 16 97 - Discharge Instructions Follow Up With: Denny Ramos MD [Partnered Physician] - 01/21/18 9:30 am () Katharine Tobar MD [Partnered Physician] - 01/29/18 1:20 pm () Barron Baum [Partnered Physician] - (Patient is going to Rehab no PCP Appointment needed) - VTE Reasons for not Prescribing Prophylaxis: Medical contraindication Documentation of Mechanical Device: Graduated compression elastic hosiery
--- NOTE | 2018-01-06 16:00 | Discharge Summary ---
Orders not resulted at time of discharge: Pending orders 12/31/17 Red Blood Cells [BBK] Routine Date of Encounter: 01/06/18 Time of Encounter: 15:53 - Discharge Diagnosis (1) Severe sepsis with acute organ dysfunction Priority: Primary Status: Acute (2) Postoperative pain Priority: Secondary Status: Acute - Hospital Course Hospital course: Ms. Chavez is a 77 year old female The patient is a 77-year-old female who presented with coronary artery disease. She has a history of diabetes, hypertension and hypercholesterolemia. On , Dr. Tobar performed coronary artery bypass grafting 1 taking the left internal mammary artery to the LAD den off the pump. 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 At some mild confusion postop, but this cleared. Her Corral catheter had been removed, but needed to be reinserted. She states that she has seen urology in the past and was told to see them approximately 2 weeks after discharge to see if the Corral can be removed. Chest tubes removed on January 02. Pacing wires were removed on January 06. The patient otherwise did well and was discharged on January 06. At that time she was afebrile. Lungs were clear to percussion and auscultation. Heart was in a normal sinus rhythm. All incisions were healing well without signs of infection and her sternum was stable. Discharge medications are on the med rec and include Percocet for pain. I did check the [place] automated Rx reporting system. She was postoperative and was given a 7 day supply. Appropriate precautions were given. She was to return to her previous and regular diet. She was to avoid heavy lifting for a total of 3 months after surgery. She was to walk as much as possible. She was discharged to an extended care facility for further rehabilitation. She was to follow up and see Dr. Tobar as directed in 4 weeks. She is to follow-up with her primary care doctor, urologist and patient assistant as directed. She was to call sooner for any difficulties. - Time Spent with Patient Total time spent providing and/or coordinating discharge services: - Discharge Medications Home Medications: Amlodipine Besylate 2.5 mg PO DAILY 12/20/17 [History] Aspirin [Adult Aspirin Regimen] 81 mg PO DAILY 12/20/17 [History] Carvedilol [Coreg] 6.25 mg PO BID 12/20/17 [History] Clopidogrel [Plavix] 75 mg PO DAILY 12/20/17 [History] Doxepin HCl 150 mg PO HS 12/20/17 [History] Gabapentin [Neurontin] 100 - 200 mg PO BID 12/20/17 [History] HYDROcodone/Acet 7.5/325 mg [[place] 7.5-325 mg] 1 tab PO TID PRN 12/20/17 [ History] Insulin ASPART [Novolog Flexpen] 5 - 24 unit SQ TIDWM 12/20/17 [History] Insulin Glargine,Hum.rec.anlog [Basaglar Kwikpen U-100] 15 unit SQ HS 12/20/17 [ History] LORazepam [Ativan] 0.5 - 1 mg PO TID PRN 12/20/17 [History] Levothyroxine Sodium 100 mcg PO DAILY 12/20/17 [History] Multivitamin [One Daily Essential] 1 tab PO DAILY 12/20/17 [History] Sennosides [Senokot] 8.6 mg PO DAILY PRN 12/20/17 [History] Simvastatin [Zocor] 20 mg PO HS 12/20/17 [History] Venlafaxine XR (24 HR) [Effexor Xr] 37.5 mg PO DAILY 12/20/17 [History] Allergies/Adverse Reactions: 3 Allergy/AdvReac Type Severity Reaction Status Date / Time shellfish derived AdvReac Vomiting Verified 12/31/17 07:16 Date of admission: 12/31/17 10:45 Primary care physician: Tamela Smith CNP Consults: 12/31/17 10:44 Consult to Cardiac Rehabilitation-Phase1 [CONS] Routine Comment: Reason for Consult: Post open heart Call Completed: Yes 01/06/18 08:08 Consult to Physical Therapy [CONS] Stat Comment: Evaluate, develop and implement POC Reason for Consult: discharge planning Does patient have active BEDREST order?: No Is patient medically & hemodynamically stable?: Yes 01/06/18 08:09 Consult to Occupational Therapy [CONS] Stat Comment: Evaluate, develop and implement POC Reason for Consult: discharge planning Does patient have active BEDREST order?: No Is patient medically & hemodynamically stable?: Yes 01/06/18 08:10 Consult to Supply Chain Development Manager [CONS] Routine Reason for SW Consult: discharge planning Procedure(s) Performed: 12/31/2017. Coronary artery bypass grafting 1 taking the left internal mammary artery to the LAD done off the pump Discharging clinician: Jabari Rebolledo Anticipated date of discharge: 01/06/18 Physical Examination Vital Signs, Last 4 Hours Temp Pulse Resp BP Pulse Ox 01/06/18 11:58 98.0 F 86 18 144/80 94 - Patient Status Disposition: Transfer Inpatient Rehab Fac Condition: Fair Functional capacity at discharge: independent ambulation Overall status at discharge: patient is progressing back to baseline - Discharge Instructions Follow Up With: Denny Ramos MD [Partnered Physician] - 01/21/18 9:30 am () Katharine Tobar MD [Partnered Physician] - 01/29/18 1:20 pm () Barron Baum [Partnered Physician] - (Patient is going to Rehab no PCP Appointment needed) Sammy Fitzgerald MD [Partnered Physician] - 01/15/18 11:00 am [facility] Aspirin Cont/Prescribed at DC: Yes Beta Keturah Cont/Prescribed at DC: Yes Statin Cont/Prescribed at DC: Yes RITCHIE/ARB Cont/Prescribed at DC: Yes - VTE Reasons for not Prescribing Prophylaxis: Medical contraindication Documentation of Mechanical Device: Graduated compression elastic hosiery
--- NOTE | 2018-01-06 16:09 | Physician Discharge Referral ---
ExtendedCare Referral Info Provider in Charge after Transfer: PCP Institutional Level of Care: Intermediate - Diagnosis (1) Severe sepsis with acute organ dysfunction Priority: Secondary Status: Acute (2) Postoperative pain Status: Acute (3) CAD (coronary artery disease) Priority: Primary Status: Chronic - Transfer Medications Home Medications: Amlodipine Besylate 2.5 mg PO DAILY 12/20/17 [History] Aspirin [Adult Aspirin Regimen] 81 mg PO DAILY 12/20/17 [History] Carvedilol [Coreg] 6.25 mg PO BID 12/20/17 [History] Clopidogrel [Plavix] 75 mg PO DAILY 12/20/17 [History] Doxepin HCl 150 mg PO HS 12/20/17 [History] Gabapentin [Neurontin] 100 - 200 mg PO BID 12/20/17 [History] HYDROcodone/Acet 7.5/325 mg [[place] 7.5-325 mg] 1 tab PO TID PRN 12/20/17 [ History] Insulin ASPART [Novolog Flexpen] 5 - 24 unit SQ TIDWM 12/20/17 [History] Insulin Glargine,Hum.rec.anlog [Basaglar Kwikpen U-100] 15 unit SQ HS 12/20/17 [ History] LORazepam [Ativan] 0.5 - 1 mg PO TID PRN 12/20/17 [History] Levothyroxine Sodium 100 mcg PO DAILY 12/20/17 [History] Multivitamin [One Daily Essential] 1 tab PO DAILY 12/20/17 [History] Sennosides [Senokot] 8.6 mg PO DAILY PRN 12/20/17 [History] Simvastatin [Zocor] 20 mg PO HS 12/20/17 [History] Venlafaxine XR (24 HR) [Effexor Xr] 37.5 mg PO DAILY 12/20/17 [History] Allergies/Adverse Reactions: 3 Allergy/AdvReac Type Severity Reaction Status Date / Time shellfish derived AdvReac Vomiting Verified 12/31/17 07:16 - Respiratory Orders Oxygen / L per min Smoking Cessation: Smoking cessation has been advised. For more information, call the [place] Tobacco Quit Line at 9-345-VNMD-NOW. - Ancillary Orders May use pressure relief devices daily prn, May go on TODD w/family/respon republican w /meds at nurse discretion PRN, May have alcoholic beverages, May consult with Dentist, Emulsion Coater, Senior Product Designer PRN - Advance Directives Code Status: Full Code - Mobility Orders Ambulate - Rehabiliation Orders Rehab Potential: Good Rehab Orders: Sternal Precautions, ROM Exercises, Evaluation for Physical Therapy, Evaluation for Occupational Therapy - Treatments Skin tear care topically daily PRN per policy, May check for fecal impaction rectally daily PRN, Fleet enema rectally every other day PRN cleansing purposes - Diet Orders No Concentrated Sweets CERTIFICATION: I certify that the transfer of the above named patient to an Extended Care Facility is necessary for the continuing treatment of the diagnosis listed. The above information is true and accurate reflection of patient's current condition. Confidential - Redisclosure prohibited without a patient's written consent.
[2018-01-06 16:49] VITALS: BP 127/69
== END 2018-01-06 18:35 | DRG 236 ==
LOC: SAMDAY 06:25 → ICNU 10:45 → 2NNU 01-04 19:21
PROVIDERS: ADMIT Thoracic Surgery (Cardiothoracic Vascular Surgery); ATTEND Thoracic Surgery (Cardiothoracic Vascular Surgery)